=== PATIENT | female | born 1955 | race Caucasian/White ===

== ENCOUNTER → 2017-12-25 16:19 | Outpatient (CLI) | payer OTHER, SELFPAY ==
--- NOTE | 2017-12-25 16:32 | HPBI_ITS ---
MAMMOGRAPHY - BILATERAL SCREENING REASON FOR EXAM: Female, 62 years old. Routine annual screening examination. PERTINENT HISTORY: Non-contributory. TECHNIQUE: Digital bilateral breast milan (3D mammographic acquisition) in the CC and MLO projections. 2-D mediolateral oblique (MLO) and craniocaudad (CC) views of both breasts were obtained. CAD: Full Field Digital Mammography with Computer Added Detection was performed. COMPARISON: Comparison is made with prior outside examination dated December 25, 2015. FINDINGS: Breast Composition: There are scattered areas of fibroglandular density. There are no dominant masses or suspicious calcifications. No other significant abnormalities are identified. There has been no significant change since the prior study. HPBI/SCREENING MAMM (CAD), BILAT IMPRESSION: Stable bilateral screening mammogram. Yearly follow-up mammogram recommended. (A) ASSESSMENT CATEGORY: BIRADS Category 1: Negative. A letter regarding these results will be sent to the patient by the facility within 30 days. Approximately 10% of breast cancers are not detected by mammography. A normal mammogram should not delay biopsy of a clinically suspicious abnormality. [id number] Electronically Signed: Javier Pruitt MD at 9:01 EST Tel [phone], Service support ,
== END ==
PROVIDERS: Family Provider Family Medicine; PCP Family Medicine; Visit Provider Family Medicine
DX: Z12.31 Encounter for screening mammogram for malignant neoplasm of breast (principal)
CPT/HCPCS: 77063; 77067

== ENCOUNTER → 2019-01-03 15:42 | Outpatient (CLI) | payer OTHER, SELFPAY ==
--- NOTE | 2019-01-03 15:46 | BI_ITS ---
MAMMOGRAPHY - BILATERAL SCREENING REASON FOR EXAM: Female, 64 years old. Routine annual screening examination. PERTINENT HISTORY: Non-contributory. TECHNIQUE: Digital bilateral breast milan (3D mammographic acquisition) in the CC and MLO projections. 2-D mediolateral oblique (MLO) and craniocaudad (CC) views of both breasts were obtained. CAD: Full Field Digital Mammography with Computer Added Detection was performed. COMPARISON: Comparison is made with prior study dated December 25, 2017. FINDINGS: Breast Composition: There are scattered areas of fibroglandular density. There are no dominant masses or suspicious calcifications. No other significant abnormalities are identified. There has been no significant change since the prior study. BI/SCREENING MAMM (CAD), BILAT IMPRESSION: Stable bilateral screening mammogram. Yearly follow-up mammogram recommended. (A) ASSESSMENT CATEGORY: BIRADS Category 1: Negative. A letter regarding these results will be sent to the patient by the facility within 30 days. Approximately 10% of breast cancers are not detected by mammography. A normal mammogram should not delay biopsy of a clinically suspicious abnormality. [id number] Electronically Signed: Javier Pruitt MD at 8:42 EST , Service support ,
--- NOTE | 2019-01-03 15:49 | BD_ITS ---
STUDY: DUAL ENERGY X-RAY ABSORPTIOMETRY / DXA REASON FOR EXAM: Female, 64 years old. The patient is postmenopausal. Loss of height. TECHNIQUE: Bone Mineral Density (BMD) measurements of lumbar spine and bilateral hips were obtained. COMPARISON: None. FINDINGS: Lumbar Spine (L1-L4): g/cm2 (1.505) / T-score (2.5) / Z-score (4.1) Findings are suggestive of normal bone density with a low fracture risk. Left Femur Total: g/cm2 (1.079) / T-score (0.6) / Z-score (1.8) Left Femoral Neck: g/cm2 (1.0-2) / T-score (-0.1) / Z-score (1.4) Right Femur Total: g/cm2 (1.087) / T-score (0.6) / Z-score (1.9) Right Femoral Neck: g/cm2 (0.978) / T-score (-0.4) / Z-score (1.1) BD/Dexa Bone Density Study IMPRESSION: The patient is considered normal as outlined below according to World Evens Organization (WHO) criteria with a low fracture risk. Reference Information: The T-score is the number of standard deviations above or below the standard which is normal for young adults at their peak bone mineral density. The World Health Organization (WHO) interprets the T-scores as follows: Above -1 Normal bone density Between -1 and -2.5 Osteopenia Equal to / or below -2.5 Osteoporosis As a practical clinical guideline, osteopenia may be graded as follows: Mild -1 through -1.5 Moderate -1.6 through -2.0 Severe -2.1 through -2.4 The Z-score is the number of standard deviations above or below age-matched controls. A Z-score of less than -1.5 would be considered abnormal. References: 1. NIH Osteoporosis and Related Bone Diseases http://www.osteo.org 2. International Society for Clinical Densitometry http://www.iscd.org 3. National Osteoporosis Foundation http://www.nof.org Electronically Signed: Javier Pruitt MD at 10:27 EST , Service support ,
== END ==
PROVIDERS: Family Provider Family Medicine; PCP Family Medicine; Visit Provider Family Medicine
DX: Z12.31 Encounter for screening mammogram for malignant neoplasm of breast (principal); Z78.0 Asymptomatic menopausal state
CPT/HCPCS: 77063; 77067; 77080

== ENCOUNTER → 2019-04-30 | Outpatient (CLI) | payer OTHER, SELFPAY ==
--- NOTE | 2019-04-30 15:31 | RAD_ITS ---
STUDY: X-RAY - LEFT KNEE REASON FOR EXAM: Female, 64 years old. Left knee pain TECHNIQUE: 4 view(s) of the knee. COMPARISON: None. FINDINGS: Normal visualized distal femur. Normal visualized proximal tibia and fibula. Normal proximal tibiofibular articulation. There is mild degenerative arthrosis of the medial femorotibial compartment. There is mild degenerative arthrosis of the lateral femorotibial compartment. Normal patellofemoral articulation. The soft tissue structures are unremarkable. RAD/Knee 4 or More Views IMPRESSION: Mild degenerative changes of the medial and lateral knee compartments. Electronically Signed: Rashawn Khan MD at 16:08 EDT , Service support ,
== END | disposition home or self-care (01) ==
LOC: MTLAB 15:29 → MTRAD 15:30
PROVIDERS: Family Provider Family Medicine; PCP Family Medicine; Referring Provider Family Medicine; Visit Provider Family Medicine
DX: M17.12 Unilateral primary osteoarthritis, left knee (principal)
CPT/HCPCS: 73564

== ENCOUNTER → 2019-05-31 08:22 | Outpatient (CLI) | payer OTHER, SELFPAY ==
[2019-05-29 08:17] VITALS: BMI 32.3
[2019-05-31 10:22] LABS: T4 Free Direct 1.25 ng/dL (0.76-1.46); Thyroid Stim Hormone (TSH) 1.03 uIU/mL (0.358-3.74)
== END ==
PROVIDERS: Family Provider Family Medicine; PCP Family Medicine; Referring Provider Family Medicine; Visit Provider Family Medicine
DX: E03.9 Hypothyroidism, unspecified (principal)
CPT/HCPCS: 36415; 84439; 84443

== ENCOUNTER → 2019-08-08 15:26 | Outpatient (CLI) | payer OTHER, SELFPAY ==
[2019-05-29 08:17] VITALS: BMI 32.3
[2019-08-08 17:50] LABS: T4 Total, Thyroxin 14.6 ug/dL (4.8-13.9); Thyroid Stim Hormone (TSH) 0.02 uIU/mL (0.358-3.74)
== END ==
PROVIDERS: Family Provider Family Medicine; PCP Family Medicine; Referring Provider Family Medicine; Visit Provider Family Medicine
DX: E03.9 Hypothyroidism, unspecified (principal)
CPT/HCPCS: 36415; 84436; 84443

== ENCOUNTER → 2019-08-28 11:33 | Outpatient (CLI) | payer OTHER, SELFPAY ==
[2019-05-29 08:17] VITALS: BMI 32.3
[2019-08-28 14:46] LABS: T4 Free Direct 0.89 ng/dL (0.76-1.46)
== END ==
PROVIDERS: Family Medicine; Family Provider Family Medicine; PCP Family Medicine; Referring Provider Family Medicine; Visit Provider Family Medicine
DX: E03.9 Hypothyroidism, unspecified (principal)
CPT/HCPCS: 36415; 84439; 84443

== ENCOUNTER → 2019-09-19 10:32 | Outpatient (CLI) | payer OTHER, SELFPAY ==
[2019-05-29 08:17] VITALS: BMI 32.3
== END ==
PROVIDERS: Family Provider Family Medicine; PCP Family Medicine; Referring Provider Family Medicine; Visit Provider Family Medicine
DX: E03.9 Hypothyroidism, unspecified (principal)
CPT/HCPCS: 36415; 84443

== ENCOUNTER → 2019-11-01 15:02 | Outpatient (CLI) | payer OTHER, SELFPAY ==
[2019-05-29 08:17] VITALS: BMI 32.3
== END ==
PROVIDERS: Family Provider Family Medicine; PCP Family Medicine; Referring Provider Family Medicine; Visit Provider Family Medicine
DX: E03.9 Hypothyroidism, unspecified (principal)
CPT/HCPCS: 36415; 84443

== ENCOUNTER → 2019-12-13 10:27 | Outpatient (CLI) | payer OTHER, SELFPAY ==
[2019-05-29 08:17] VITALS: BMI 32.3
[2019-12-13 12:59] LABS: Anion Gap 5 (5-15); BUN 22 mg/dL (7-18); Calcium,Total 9.4 mg/dL (8.5-10.1); Chloride 108 mmol/L (98-107); Cholesterol 164 mg/dL (200); Creatinine, Serum 0.67 mg/dL (0.55-1.02); EST Glomerular Filtration Rate 94 mL/min (>60); Est Glom Filt Rate - Afr Amer 114 mL/min (>60); Glucose 73 mg/dL (74-106); High Density Lipoprotein 55 mg/dL; Potassium 3.9 mmol/L (3.5-5.1); Sodium Level 141 mmol/L (136-145); Thyroid Stim Hormone (TSH) 9.25 uIU/mL (0.358-3.74); Triglycerides 70 mg/dL; Very Low Density Lipoprotein 14 mg/dL (5-40)
[2019-12-13 17:06] LABS: T4 Free Direct 1.08 ng/dL (0.76-1.46)
== END ==
PROVIDERS: PCP Family Medicine; Referring Provider Family Medicine; Visit Provider Family Medicine
DX: E78.00 Pure hypercholesterolemia, unspecified (principal); E03.9 Hypothyroidism, unspecified; E66.9 Obesity, unspecified
CPT/HCPCS: 36415; 80048; 80061; 84439; 84443

== ENCOUNTER → 2020-05-04 08:36 | Outpatient (CLI) | payer OTHER, SELFPAY ==
[2019-05-29 08:17] VITALS: BMI 32.3
[2020-05-04 10:22] LABS: Anion Gap 2 (5-15); BUN 25 mg/dL (7-18); BUN/Creat Ratio 44.6 RATIO (10-20); Calcium,Total 8.8 mg/dL (8.5-10.1); Chloride 111 mmol/L (98-107); Creatinine, Serum 0.56 mg/dL (0.55-1.02); EST Glomerular Filtration Rate 114 mL/min (>60); Est Glom Filt Rate - Afr Amer 138 mL/min (>60); Glucose 85 mg/dL (74-106); Potassium 3.9 mmol/L (3.5-5.1); Sodium Level 143 mmol/L (136-145); Thyroid Stim Hormone (TSH) 5.63 uIU/mL (0.358-3.74)
== END ==
PROVIDERS: PCP Family Medicine; Visit Provider Family Medicine
DX: E03.9 Hypothyroidism, unspecified (principal); E78.00 Pure hypercholesterolemia, unspecified
CPT/HCPCS: 36415; 80048; 84443

== ENCOUNTER → 2020-08-04 08:15 | Outpatient (CLI) | payer OTHER, SELFPAY ==
[2019-05-29 08:17] VITALS: BMI 32.3
[2020-08-04 10:11] LABS: Cholesterol 174 mg/dL (200); High Density Lipoprotein 62 mg/dL; Thyroid Stim Hormone (TSH) 5.86 uIU/mL (0.358-3.74); Triglycerides 75 mg/dL; Very Low Density Lipoprotein 15 mg/dL (5-40)
== END ==
PROVIDERS: PCP Family Medicine; Referring Provider Family Medicine; Visit Provider Family Medicine
DX: E78.00 Pure hypercholesterolemia, unspecified (principal); E03.9 Hypothyroidism, unspecified
CPT/HCPCS: 36415; 80061; 84443

== ENCOUNTER → 2020-09-23 08:13 | Outpatient (CLI) | payer OTHER, SELFPAY ==
[2019-05-29 08:17] VITALS: BMI 32.3
[2020-09-23 10:41] LABS: T4 Free Direct 1.04 ng/dL (0.76-1.46); Thyroid Stim Hormone (TSH) 2.79 uIU/mL (0.358-3.74)
== END ==
PROVIDERS: PCP Family Medicine; Referring Provider Family Medicine; Visit Provider Family Medicine
DX: E03.9 Hypothyroidism, unspecified (principal)
CPT/HCPCS: 36415; 84439; 84443; 84481

== ENCOUNTER → 2021-01-15 16:19 | Outpatient (CLI) | payer OTHER, SELFPAY ==
[2019-05-29 08:17] VITALS: BMI 32.3
[2021-01-15 18:29] LABS: Free T3 1.7 pg/mL (2.18-3.98); T4 Free Direct 1.09 ng/dL (0.76-1.46); Thyroid Stim Hormone (TSH) 3.29 uIU/mL (0.358-3.74)
== END ==
PROVIDERS: PCP Family Medicine; Referring Provider Family Medicine; Visit Provider Family Medicine
DX: E03.9 Hypothyroidism, unspecified (principal)
CPT/HCPCS: 36415; 84439; 84443; 84481

== ENCOUNTER → 2021-07-28 08:36 | Outpatient (CLI) | payer OTHER, SELFPAY ==
[2021-07-28 10:53] LABS: ALB/GLOB Ratio 1.2 RATIO (0.9-2.4); AST(SGOT) 21 U/L (15-37); Alanine Aminotransfer ALT/SGPT 31 U/L (13-56); Albumin, Serum 3.6 g/dL (3.2-5.0); Alkaline Phosphatase 61 U/L (45-117); Anion Gap 2 (5-15); BUN 19 mg/dL (7-18); BUN/Creat Ratio 35.8 RATIO (10-20); Calcium,Total 8.5 mg/dL (8.5-10.1); Chloride 110 mmol/L (98-107); Cholesterol 173 mg/dL (200); Creatinine, Serum 0.53 mg/dL (0.55-1.02); EST Glomerular Filtration Rate 122 mL/min (>60); Est Glom Filt Rate - Afr Amer 147 mL/min (>60); Free T3 2.2 pg/mL (2.18-3.98); Glucose 92 mg/dL (74-106); High Density Lipoprotein 63 mg/dL; Protein, Total 6.6 g/dL (6.4-8.2); Sodium Level 142 mmol/L (136-145); T4 Free Direct 1.07 ng/dL (0.76-1.46); Thyroid Stim Hormone (TSH) 1.84 uIU/mL (0.358-3.74); Triglycerides 48 mg/dL; Very Low Density Lipoprotein 10 mg/dL (5-40)
== END ==
PROVIDERS: PCP Family Medicine; Referring Provider Family Medicine; Visit Provider Family Medicine
DX: E03.9 Hypothyroidism, unspecified (principal); E78.00 Pure hypercholesterolemia, unspecified
CPT/HCPCS: 36415; 80053; 80061; 84439; 84443; 84481

== ENCOUNTER 2021-12-23 08:57 | Outpatient (CLI) | payer OTHER, SELFPAY ==
[2021-12-23 10:28] LABS: Cholesterol 141 mg/dL (200); High Density Lipoprotein 53 mg/dL; T4 Free Direct 1.24 ng/dL (0.76-1.46); Thyroid Stim Hormone (TSH) 1.24 uIU/mL (0.358-3.74); Triglycerides 57 mg/dL; Very Low Density Lipoprotein 11 mg/dL (5-40)
== END 2021-12-23 23:59 | disposition home or self-care (01) ==
LOC: MFPLAB 09:03
PROVIDERS: PCP Family Medicine; Referring Provider Family Medicine; Visit Provider Family Medicine
DX: E03.9 Hypothyroidism, unspecified (principal); E78.00 Pure hypercholesterolemia, unspecified
CPT/HCPCS: 36415; 80061; 84439; 84443; 84481

== ENCOUNTER 2022-01-18 13:13 | Outpatient (CLI) | payer OTHER, SELFPAY ==
--- NOTE | 2022-01-18 13:15 | BI_ITS ---
MAMMOGRAPHY - BILATERAL SCREENING REASON FOR EXAM: Female, 67 years old. Routine annual screening examination. PERTINENT HISTORY: Non-contributory. TECHNIQUE: Digital bilateral breast cherry (3D mammographic acquisition) in the CC and MLO projections. 2-D mediolateral oblique (MLO) and craniocaudad (CC) views of both breasts were obtained. CAD: Full Field Digital Mammography with Computer Added Detection was performed. COMPARISON: Comparison is made with prior study dated 01/03/2019 and 12/25/2017. FINDINGS: Breast Composition: There are scattered areas of fibroglandular density. There are no dominant masses or suspicious calcifications. No other significant abnormalities are identified. There has been no significant change since the prior study. BI/SCRN MAMM (CAD)W/CHERRY BILAT IMPRESSION: Stable bilateral screening mammogram. Yearly follow-up mammogram recommended. (A) ASSESSMENT CATEGORY: BIRADS Category 1: Negative. A letter regarding these results will be sent to the patient by the facility within 30 days. Approximately 10% of breast cancers are not detected by mammography. A normal mammogram should not delay biopsy of a clinically suspicious abnormality. [id number] Electronically Signed: Javier Pruitt MD at 14:20 EST ,
--- NOTE | 2022-01-18 13:20 | BD_ITS ---
STUDY: DUAL ENERGY X-RAY ABSORPTIOMETRY / DXA REASON FOR EXAM: Female, 67 years old. [id number]. Patient is postmenopausal. TECHNIQUE: Bone Mineral Density (BMD) measurements of lumbar spine and bilateral hips were obtained. COMPARISON: Comparison is made with prior study dated 01/03/2019. FINDINGS: Lumbar Spine (L1-L4): g/cm2 (1.203) / T-score (1.4) / Z-score (3.5) Findings are suggestive of normal bone density with a low fracture risk. Left Femur Total: g/cm2 (0.990) / T-score (0.4) / Z-score (1.8) Left Femoral Neck: g/cm2 (0.872) / T-score (0.2) / Z-score (1.9) Right Femur Total: g/cm2 (0.944) / T-score (0.0) / Z-score (1.5) Right Femoral Neck: g/cm2 (0.743) / T-score (-1.0) / Z-score (0.8) The T-Scores on the most recent prior examination were: Lumbar Spine (L1-L4): There has been worsening of bone density since the previous examination. Left Femur Total: which represents a worsening of 2.1%. Right Femur Total: which represents a worsening of 7.4%. BD/Dexa Bone Density Study IMPRESSION: The patient is considered normal as outlined below according to World Evens Organization (WHO) criteria with a low fracture risk. There has been worsening of bone density since the previous examination. Reference Information: The T-score is the number of standard deviations above or below the standard which is normal for young adults at their peak bone mineral density. The World Health Organization (WHO) interprets the T-scores as follows: Above -1 Normal bone density Between -1 and -2.5 Osteopenia Equal to / or below -2.5 Osteoporosis As a practical clinical guideline, osteopenia may be graded as follows: Mild -1 through -1.5 Moderate -1.6 through -2.0 Severe -2.1 through -2.4 The Z-score is the number of standard deviations above or below age-matched controls. A Z-score of less than -1.5 would be considered abnormal. References: 1. NIH Osteoporosis and Related Bone Diseases www osteo.org 2. International Society for Clinical Densitometry www iscd.org 3. National Osteoporosis Foundation www nof.org Electronically Signed: Javier Pruitt MD at 12:42 EST ,
== END 2022-01-18 23:59 | disposition home or self-care (01) ==
LOC: OPBD 13:13
PROVIDERS: PCP Family Medicine; Visit Provider Family Medicine
DX: Z12.31 Encounter for screening mammogram for malignant neoplasm of breast (principal)
CPT/HCPCS: 77063; 77067; 77080

== ENCOUNTER 2022-01-20 07:00 | Outpatient (RCR) | payer OTHER, SELFPAY ==
--- NOTE | 2021-12-30 07:45 | HP.PTEVAL ---
Patient's Visit Information TIFFANY DUNLAP is a 66 year old F referred to Physical Therapy by Dr. Arnold New MD with a diagnosis of Left Knee Pes Anserine Bursitis. Date of Evaluation: 12/30/21 Physical Therapist: Carmenza Eason DPT - Visit Plan Frequency: 2x /Week Duration: 3 Weeks Plan: Focus on LE and core strength/stabilization- Modality of ice/heat only. HEP Given IE: quad set, SLR, bridge, 90/90 hamstring stretch - Subjective Patient reports that her left knee a couple of years ago just started hurting. She can deal with the pain during the day but at night its miserable. She tried everything but ended up in the recliner-didn't ever go away. She has had 5 cortisone injections in the knee- they take the edge off but the pain doesn't completely go away. Pain is located on medial portion of the knee and tightness radiates up the hamstring- does radiate to the mid vang. Describes it as sharp/shooting and knife like pain. Worst: 08/22 Agg: night time, twisting Eases: Cortisone injection. Best: 11/22. Watches her grandchildren and has a hard time getting up/down off the floor. She is not doing a normal exercise program but she is active throughout the day. She gets 6,0000 steps a day walking in the basement. X-rays- mild degeneration. No MRI at this time. Dr. Vincent gave her some exercises that she does at home but is not sure that they are working. Has not seen orthopedics. PMHx: varicose vein removal years ago Meds: Synthroid. - Objective Posture: FH, RS- can correct but does not maintain. Gait: slightly antalgic- decreased stance on the left LE with valgus at the left knee. HR/TR: able with UE A. SLS: 5 sec then LOB does have moderate hip drop. Stairs: asc/desc 8 recip with 1 HR- Descent lacks eccentric control. Sensation: WNL. Palpation: tender along medial joint line and pes anserine. ROM: 0-120 degrees with pain at end range flexion. Flex: HS: moderate, Gastroc: moderate. Strength: Core: fair minus, Hip: 4/5 throughout, Knee: 4/5 with discomfort with HS testing, Ankle: 5/5. Special Test: LLD: negative, Pelvic Alignment: WFL - Special Tests L/S Slump test left side: Negative L/S Left Straight Leg Raise: Negative L Hip Scour: Negative L Hip RONDA - Intraarticular Pathology: Negative L Hip FADDIR - Labrum: Negative L Hip Impingement Provocation - Labrum: Negative L Hip Trendelenberg - Glut Medius: Negative L Hip Juan - IT Band: Negative L Knee Eladio - Meniscus: Positive L Knee Valgus - MCL: Positive L Knee Varus - LCL: Negative - Balance/Special Test Scores Lower Extremity Functional Score: 65 - Goals Goal 1:: Patient will be I with HEP and progression Goal Time Frame: 4-6 Weeks Goal 2:: Patient will ambulate >300 feet with a normalized gait pattern Goal Time Frame: 4-6 Weeks Goal 3:: Patient will SLS for 15 sec without LOB or pain Goal Time Frame: 4-6 Weeks Goal 4:: Patient will report sleeping through the night for 1 week Goal Time Frame: 4-6 Weeks Goal 5:: Patient will subjectively report more than 75% improvement. Goal Time Frame: 4-6 Weeks - Rehabilitation Potential Physical Therapy Diagnosis: Patient presents with hypomobility- she has decreased pain free ROM, LE and core strength/stabilization, flex and muscular endurance leading to poor posture, abnormal gait and increased pain with ADL's. Rehabilitation Potential: Good - Anticipated Interventions Patient/Client Instruction: Educate patient on: Benefits of Fitness Program Therapeutic Exercise to Include: Strength training, Endurance training, Agility training, Body mechanics, Postural training, Flexibilty training, Gait and locomotor training, Neuromotor development, Dynamic Lumbar Stabilization, Scapular Strength/Stabilization For the Purpose of:: To improve muscle performance and motor function TENS: No Cryotherapy (ice pack, ice massage): Yes Thermo therapy (hot pack): Yes Ultrasound (thermal/non thermal): No Thank you for the opportunity to evaluate your patient. For Medicare and Medicare HMO plans, please review the plan of care and approve it. It will need to be FAXED BACK to us at [phone] for Medicare purposes. For Medicare only, by signing this I certify the plan of care. Please let me know if there are questions or concerns regarding this plan of care. Physician Signature: Date:
--- NOTE | 2022-01-20 08:17 | HP.PTDCSUM ---
It has been my pleasure to treat TIFFANY DUNLAP referred by Dr. Arnold New MD, with the diagnosis of Left Knee Pes Anserine Bursitis for a total of 7 visit(s). Discharge Date: Please see the following information for a summary of their discharge status. Subjective: Patient reports that she is doing exercises 1x a day and is very anglican about it. She reports that she slept through the night last night without pain. Pain is triggered by pivoting. % Improvement: 90 Objective/Function: Posture: FH, RS- can correct but does not maintain. Gait: no deviation noted. HR/TR: able with UE A. SLS: 15 sec. Stairs: asc/desc 8 recip with no HR. Sensation: WNL. Palpation: tender along medial joint line. ROM: 0-120 degrees. Flex: HS: moderate, Gastroc: moderate. Strength: Core: fair, Hip: 4+/5 throughout, Knee: 4+/5, Ankle: 5/5. Special Test: LLD: negative, Pelvic Alignment: WFL. - Special Tests. L/S Slump test left side: Negative. L/S Left Straight Leg Raise: Negative. L Hip Scour: Negative. L Hip RONDA - Intraarticular Pathology: Negative. L Hip FADDIR - Labrum: Negative. L Hip Impingement Provocation - Labrum: Negative. L Hip Trendelenberg - Glut Medius: Negative. L Hip Juan - IT Band: Negative. L Knee Eladio - Meniscus: Positive. L Knee Valgus - MCL: Positive. L Knee Varus - LCL: Negative Goal 1:: Patient will be I with HEP and progression Goal Progress: Goal Met Goal 2:: Patient will ambulate >300 feet with a normalized gait pattern Goal Progress: Goal Met Goal 3:: Patient will SLS for 15 sec without LOB or pain Goal Progress: Goal Met Goal 4:: Patient will report sleeping through the night for 1 week Goal Progress: Goal Met Goal 5:: Patient will subjectively report more than 75% improvement. Goal Progress: Goal Met Plan: 01/20: Discharge to I HEP. Focus on LE and core strength/stabilization- Modality of ice/heat only. HEP Given IE: quad set, SLR, bridge, 90/90 hamstring stretch If there are questions or concerns regarding this patient's physical therapy, please feel free to call me at [phone]. Thank you for the referral of this patient. Sincerely, Carmenza Eason, FABIANOT Balance/Gait/Functional tests - Balance/Special Test Scores Lower Extremity Functional Score: 78
--- NOTE | 2022-04-27 10:32 | HP.PTDCSUM_ITS ---
It has been my pleasure to treat TIFFANY DUNLAP referred by Dr. Arnold New MD, with the diagnosis of Left Knee Pes Anserine Bursitis for a total of 7 visit(s). Discharge Date: Please see the following information for a summary of their discharge status. Subjective: Patient reports that she is doing exercises 1x a day and is very yazidism about it. She reports that she slept through the night last night without pain. Pain is triggered by pivoting. % Improvement: 90 Objective/Function: Posture: FH, RS- can correct but does not maintain. Gait: no deviation noted. HR/TR: able with UE A. SLS: 15 sec. Stairs: asc/desc 8 recip with no HR. Sensation: WNL. Palpation: tender along medial joint line. ROM: 0-120 degrees. Flex: HS: moderate, Gastroc: moderate. Strength: Core: fair, Hip: 4+/5 throughout, Knee: 4+/5, Ankle: 5/5. Special Test: LLD: negative, Pelvic Alignment: WFL. - Special Tests. L/S Slump test left side: Negative. L/S Left Straight Leg Raise: Negative. L Hip Scour: Negative. L Hip RONDA - Intraarticular Pathology: Negative. L Hip FADDIR - Labrum: Negative. L Hip Impingement Provocation - Labrum: Negative. L Hip Trendelenberg - Glut Medius: Negative. L Hip Juan - IT Band: Negative. L Knee Eladio - Meniscus: Positive. L Knee Valgus - MCL: Positive. L Knee Varus - LCL: Negative Goal 1:: Patient will be I with HEP and progression Goal Progress: Goal Met Goal 2:: Patient will ambulate >300 feet with a normalized gait pattern Goal Progress: Goal Met Goal 3:: Patient will SLS for 15 sec without LOB or pain Goal Progress: Goal Met Goal 4:: Patient will report sleeping through the night for 1 week Goal Progress: Goal Met Goal 5:: Patient will subjectively report more than 75% improvement. Goal Progress: Goal Met Plan: 01/20: Discharge to I HEP. Focus on LE and core strength/stabilization- Modality of ice/heat only. HEP Given IE: quad set, SLR, bridge, 90/90 hamstring stretch If there are questions or concerns regarding this patient's physical therapy, please feel free to call me at [phone]. Thank you for the referral of this patient. Sincerely, Carmenza Eason, FABIANOT Balance/Gait/Functional tests - Balance/Special Test Scores Lower Extremity Functional Score: 78
== END 2022-01-20 19:00 | disposition home or self-care (01) ==
LOC: PT 07:00
PROVIDERS: PCP Family Medicine; Referring Provider Family Medicine; Visit Provider Family Medicine
DX: M70.52 Other bursitis of knee, left knee (principal); M25.562 Pain in left knee
CPT/HCPCS: 97110; 97161; 97164

== ENCOUNTER → 2022-06-16 | Outpatient (CLI) | payer OTHER, SELFPAY ==
[2022-06-16 15:43] LABS: Free T3 2.3 pg/mL (2.18-3.98); T4 Free Direct 1.22 ng/dL (0.76-1.46); Thyroid Stim Hormone (TSH) 0.87 uIU/mL (0.358-3.74)
== END | disposition home or self-care (01) ==
LOC: MFPLAB 12:02
PROVIDERS: PCP Family Medicine; Referring Provider Family Medicine; Visit Provider Family Medicine
DX: E03.9 Hypothyroidism, unspecified (principal)
CPT/HCPCS: 36415; 84439; 84443; 84481

== ENCOUNTER → 2022-08-05 | Outpatient (CLI) | payer OTHER, SELFPAY ==
[2022-08-05 14:55] LABS: Absolute Lymphocyte Count 0.92 X10^3/uL (0.83-4.51); Absolute Neutrophil Count 2.4 X10^3/uL (2.0-7.7); Basophil# 0.05 X10^3/uL; Basophil% 1.3 % (0-1); Eosinophil# 0.18 X10^3/uL; Eosinophils% 4.7 % (0-5); Hematocrit 38.9 % (37-47); Hemoglobin 12.5 g/dL (12.0-15.0); Lymphocyte # 0.92 X10^3/ul (0.83-4.51); Lymphocyte % 24.1 % (19-41); Mean Corp Hgb Conc 32.1 g/dL (32-36); Mean Corpuscular Hgb 29.1 pg (27.0-32.0); Mean Corpuscular Volume 90.5 fL (81-99); Mean Platelet Vol. 10.3 fl (6.2-12.0); Monocyte# 0.28 X10^3/uL; Monocyte% 7.3 % (0-10); NRBC Flagged by Analyzer 0 % (0-5); Neutrophil # 2.37 X10^3/uL (2.7-7.7); Neutrophil % 62.3 % (47-70); Platelet Count 195 K/mm3 (150-450); White Blood Count 3.8 K/mm3 (4.4-11.0)
[2022-08-05 15:20] LABS: ALB/GLOB Ratio 1.3 RATIO (0.9-2.4); AST(SGOT) 35 U/L (15-37); Alanine Aminotransfer ALT/SGPT 40 U/L (13-56); Albumin, Serum 3.8 g/dL (3.2-5.0); Alkaline Phosphatase 62 U/L (45-117); Anion Gap 7 (5-15); BUN 16 mg/dL (7-18); BUN/Creat Ratio 25.4 RATIO (10-20); Calcium,Total 8.9 mg/dL (8.5-10.1); Chloride 109 mmol/L (98-107); Cholesterol 173 mg/dL (200); Creatinine, Serum 0.63 mg/dL (0.55-1.02); EST Glomerular Filtration Rate 100 mL/min (>60); Est Glom Filt Rate - Afr Amer 121 mL/min (>60); Glucose 70 mg/dL (74-106); High Density Lipoprotein 75 mg/dL; Potassium 3.8 mmol/L (3.5-5.1); Protein, Total 6.8 g/dL (6.4-8.2); Sodium Level 142 mmol/L (136-145); Triglycerides 66 mg/dL; Very Low Density Lipoprotein 13 mg/dL (5-40)
== END | disposition home or self-care (01) ==
LOC: MFPLAB 11:27
PROVIDERS: PCP Family Medicine; Referring Provider Family Medicine; Visit Provider Family Medicine
DX: E78.00 Pure hypercholesterolemia, unspecified (principal); E03.9 Hypothyroidism, unspecified
CPT/HCPCS: 36415; 80053; 80061; 85025

== ENCOUNTER → 2022-12-20 | Outpatient (CLI) | payer OTHER, SELFPAY ==
[2022-12-20 19:32] LABS: Thyroid Stim Hormone (TSH) 2.96 uIU/mL (0.358-3.74)
== END | disposition home or self-care (01) ==
LOC: MFPLAB 08:25
PROVIDERS: PCP Family Medicine; Referring Provider Family Medicine; Visit Provider Family Medicine
DX: E03.9 Hypothyroidism, unspecified (principal)
CPT/HCPCS: 36415; 84443

== ENCOUNTER → 2023-01-02 | Outpatient (CLI) | payer OTHER, SELFPAY ==
[2023-01-02 15:59] LABS: ALB/GLOB Ratio 1.4 RATIO (0.9-2.4); AST(SGOT) 17 U/L (15-37); Alanine Aminotransfer ALT/SGPT 25 U/L (13-56); Albumin, Serum 4.1 g/dL (3.2-5.0); Alkaline Phosphatase 57 U/L (45-117); Anion Gap 8 (5-15); BUN 23 mg/dL (7-18); BUN/Creat Ratio 37.8 RATIO (10-20); Calcium,Total 9.4 mg/dL (8.5-10.1); Chloride 107 mmol/L (98-107); Creatinine, Serum 0.61 mg/dL (0.55-1.02); EST Glomerular Filtration Rate 104 mL/min (>60); Est Glom Filt Rate - Afr Amer 125 mL/min (>60); Glucose 97 mg/dL (74-106); Potassium 4.1 mmol/L (3.5-5.1); Protein, Total 7.1 g/dL (6.4-8.2); Sodium Level 141 mmol/L (136-145)
== END | disposition home or self-care (01) ==
LOC: MFPLAB 12:19
PROVIDERS: PCP Family Medicine; Visit Provider Family Medicine
DX: R00.2 Palpitations (principal)
CPT/HCPCS: 36415; 80053

== ENCOUNTER → 2023-01-19 | Outpatient (CLI) | payer OTHER, SELFPAY ==
--- NOTE | 2023-01-19 16:25 | BI_ITS ---
MAMMOGRAPHY - BILATERAL SCREENING REASON FOR EXAM: Female, 68 years old. Routine annual screening examination. PERTINENT HISTORY: Non-contributory. TECHNIQUE: Digital bilateral breast cherry (3D mammographic acquisition) in the CC and MLO projections. 2-D mediolateral oblique (MLO) and craniocaudad (CC) views of both breasts were obtained. CAD: Full Field Digital Mammography with Computer Added Detection was performed. COMPARISON: Comparison is made with prior study January 18, 2021 November 02, 2019. FINDINGS: Breast Composition: There are scattered areas of fibroglandular density. There are no dominant masses or suspicious calcifications. No other significant abnormalities are identified. There has been no significant change since the prior study. BI/SCRN MAMM (CAD)W/CHERRY BILAT IMPRESSION: Stable bilateral screening mammogram. Yearly follow-up mammogram recommended. (A) ASSESSMENT CATEGORY: BIRADS Category 1: Negative. A letter regarding these results will be sent to the patient by the facility within 30 days. Approximately 10% of breast cancers are not detected by mammography. A normal mammogram should not delay biopsy of a clinically suspicious abnormality. [id number] Electronically Signed: Javier Pruitt MD at 8:12 EST ,
== END | disposition home or self-care (01) ==
LOC: OPBI 16:20
PROVIDERS: PCP Family Medicine; Visit Provider Family Medicine
DX: Z12.31 Encounter for screening mammogram for malignant neoplasm of breast (principal)
CPT/HCPCS: 77063; 77067

== ENCOUNTER → 2023-03-24 | Outpatient (CLI) | payer OTHER, SELFPAY ==
--- NOTE | 2023-03-24 13:47 | ECHOD_ITS ---
Reason For Study: Afib/Flutter Procedure This was a 2D Doppler, Color Flow transthoracic echocardiogram. Exam performed in department. Left Ventricle Normal LV size. Left ventricular systolic function is normal. The estimated ejection fraction is 60 %. Stage 1 diastolic dysfunction. No regional wall motion abnormalities noted. Right Ventricle Normal RV size. Normal systolic function. Atria Normal left atrium. Normal right atrium. Mitral Valve There is mild mitral annular calcification. Tricuspid Valve Normal tricuspid valve. Mild (1+) tricuspid valve insufficiency. Pulmonary artery systolic pressure is 36 mmHg. Aortic Valve Trisinus/trileaflet aortic valve. Pulmonic Valve Normal pulmonic valve. Great Vessels Normal aortic root. The pulmonary artery is normal size. Normal inferior vena cava. Pericardium/Pleural No pericardial effusion. MMode/2D Measurements & Calculations LVIDd: 4.5 cm IVSd: 1.1 cm Ao root diam: 3.5 cm LVIDs: 2.4 cm LVPWd: 1.0 cm LA dimension: 3.7 cm RVDd: 3.5 cm FS: 45.5 % LAV(MOD-bp): 57.2 ml LA A4 area: 18.5 cm2 RA A4 area: 13.5 cm2 LAV(MOD-bp) Indexed: 30.2 ml/m2 LAV(MOD-sp2): 58.6 ml LAV(MOD-sp4): 50.7 ml Time Measurements MV dec time: 0.21 sec Doppler Measurements & Calculations MV E max vinicius: 95.4 cm/sec Lat Peak E' Vinicius: 9.2 cm/sec Med Peak E' Vinicius: 10.8 cm/sec MV A max vinicius: 105.1 cm/sec E/E' lat: 10.4 E/E' med: 8.8 MV E/A: 0.91 MV V2 max: 118.3 cm/sec MV P1/2t max vinicius: 112.2 cm/sec Ao V2 max: 137.0 cm/sec MV max P.6 mmHg MV P1/2t: 76.7 msec Ao max P.5 mmHg MV V2 mean: 69.2 cm/sec MV dec slope: 428.5 cm/sec2 Ao V2 mean: 92.0 cm/sec MV mean P.3 mmHg MVA(P1/2t): 2.9 cm2 Ao mean P.9 mmHg MV V2 VTI: 44.9 cm Ao V2 VTI: 35.3 cm AV (velocity ratio): 0.88 LV V1 max: 124.0 cm/sec PA V2 max: 91.3 cm/sec TR max vinicius: 276.0 cm/sec LV V1 max P.2 mmHg TR max P.5 mmHg LV V1 mean P.6 mmHg LV V1 mean: 90.1 cm/sec LV V1 VTI: 30.9 cm ECHO/Echo Complete Interpretation Summary Normal LV size. Left ventricular systolic function is normal. The estimated ejection fraction is 60 %. Stage 1 diastolic dysfunction. Pulmonary artery systolic pressure is 36 mmHg. Ordering Physician: Aly Storey Referring Physician: Rosamaria Fofana Performed By: Martin Sharp RCS
== END | disposition home or self-care (01) ==
PROVIDERS: PCP Family Medicine; Referring Provider Internal Medicine Cardiovascular Disease; Visit Provider Internal Medicine Cardiovascular Disease
DX: I48.0 Paroxysmal atrial fibrillation (principal)
CPT/HCPCS: 93306

== ENCOUNTER 2023-08-07 08:20 | Outpatient (CLI) | payer OTHER, SELFPAY | END 2023-08-07 23:59 | disposition home or self-care (01) | LOC: MFPLAB 08:22 | PROVIDERS: PCP Family Medicine; Visit Provider Family Medicine | DX: Z00.00 Encounter for general adult medical examination without abnormal findings (principal) ==

== ENCOUNTER → 2023-08-08 | Outpatient (CLI) | payer OTHER, SELFPAY ==
[2023-08-08 11:14] LABS: T4 Free Direct 1.25 ng/dL (0.76-1.46)
== END | disposition home or self-care (01) ==
LOC: MFPLAB 08:58
PROVIDERS: PCP Family Medicine; Visit Provider Family Medicine
DX: E03.9 Hypothyroidism, unspecified (principal)
CPT/HCPCS: 84439; 84443

== ENCOUNTER → 2023-08-18 | Outpatient (CLI) | payer OTHER, SELFPAY ==
[2023-08-18 10:59] LABS: ALB/GLOB Ratio 1.2 RATIO (0.9-2.4); AST(SGOT) 24 U/L (15-37); Alanine Aminotransfer ALT/SGPT 32 U/L (13-56); Albumin, Serum 3.8 g/dL (3.2-5.0); Alkaline Phosphatase 70 U/L (45-117); Anion Gap 5 (5-15); BUN 12 mg/dL (7-18); BUN/Creat Ratio 21.6 RATIO (10-20); Calcium,Total 9.1 mg/dL (8.5-10.1); Chloride 108 mmol/L (98-107); Cholesterol 196 mg/dL (200); Creatinine, Serum 0.56 mg/dL (0.55-1.02); EST Glomerular Filtration Rate 115 mL/min (>60); Est Glom Filt Rate - Afr Amer 139 mL/min (>60); Globulin 3.2 g/dL (2.2-4.2); Glucose 77 mg/dL (74-106); High Density Lipoprotein 73 mg/dL; Sodium Level 140 mmol/L (136-145); Triglycerides 66 mg/dL; Very Low Density Lipoprotein 13 mg/dL (5-40)
== END | disposition home or self-care (01) ==
LOC: MFPLAB 08:36
PROVIDERS: PCP Family Medicine; Visit Provider Family Medicine
DX: E78.00 Pure hypercholesterolemia, unspecified (principal)
CPT/HCPCS: 36415; 80053; 80061

== ENCOUNTER → 2024-02-05 | Outpatient (CLI) | payer OTHER, SELFPAY ==
--- NOTE | 2024-02-05 07:29 | BI_ITS ---
MAMMOGRAPHY - BILATERAL SCREENING REASON FOR EXAM: Female, 69 years old. Routine annual screening examination. PERTINENT HISTORY: Non-contributory. TECHNIQUE: Digital bilateral breast cherry (3D mammographic acquisition) in the CC and MLO projections. 2-D mediolateral oblique (MLO) and craniocaudad (CC) views of both breasts were obtained. CAD: Full Field Digital Mammography with Computer Added Detection was performed. COMPARISON: Comparison is made with prior study January 19, 2023 and January 18, 2022. FINDINGS: Breast Composition: There are scattered areas of fibroglandular density. There are no dominant masses or suspicious calcifications. Stable small benign-appearing bilateral axillary lymph nodes. No other significant abnormalities are identified. There has been no significant change since the prior study. BI/SCRN MAMM (CAD)W/CHERRY BILAT IMPRESSION: Stable bilateral screening mammogram. Yearly follow-up mammogram recommended. (A) ASSESSMENT CATEGORY: BIRADS Category 2: Benign. A letter regarding these results will be sent to the patient by the facility within 30 days. Approximately 10% of breast cancers are not detected by mammography. A normal mammogram should not delay biopsy of a clinically suspicious abnormality. [id number] Electronically Signed: Javier Pruitt MD at 8:41 EDT ,
== END | disposition home or self-care (01) ==
PROVIDERS: PCP Family Medicine; Referring Provider Family Medicine; Visit Provider Family Medicine
DX: Z12.31 Encounter for screening mammogram for malignant neoplasm of breast (principal)
CPT/HCPCS: 77063; 77067

== ENCOUNTER → 2024-04-18 | Outpatient (CLI) | payer OTHER, SELFPAY ==
[2024-04-18 09:11] LABS: Absolute Lymphocyte Count 1.19 X10^3/uL (0.83-4.51); Basophil# 0.06 X10^3/uL; Basophil% 1.6 % (0-1); Eosinophil# 0.18 X10^3/uL; Eosinophils% 4.7 % (0-5); Hematocrit 40.3 % (37-47); Hemoglobin 12.7 g/dL (12.0-15.0); Lymphocyte # 1.19 X10^3/ul (0.83-4.51); Lymphocyte % 31.1 % (19-41); Mean Corp Hgb Conc 31.5 g/dL (32-36); Mean Corpuscular Hgb 27.7 pg (27.0-32.0); Mean Corpuscular Volume 87.8 fL (81-99); Monocyte# 0.38 X10^3/uL; Monocyte% 9.9 % (0-10); NRBC Flagged by Analyzer 0 % (0-5); Neutrophil # 2.02 X10^3/uL (2.7-7.7); Neutrophil % 52.7 % (47-70); Platelet Count 225 K/mm3 (150-450); RBC Distribution Width CV 13.9 % (11.6-14.6); RBC Distribution Width SD 44.8 fl (35.1-43.9); Red Blood Count 4.59 M/mm3 (4.2-5.4); White Blood Count 3.8 K/mm3 (4.4-11.0)
[2024-04-18 09:50] LABS: Anion Gap 5 (5-15); BUN 19 mg/dL (7-18); BUN/Creat Ratio 32.9 RATIO (10-20); Calcium,Total 9.4 mg/dL (8.5-10.1); Chloride 108 mmol/L (98-107); Creatinine, Serum 0.58 mg/dL (0.55-1.02); EST Glomerular Filtration Rate 110 mL/min (>60); Est Glom Filt Rate - Afr Amer 133 mL/min (>60); Glucose 84 mg/dL (74-106); Magnesium 2.5 mg/dL (1.6-2.6); Potassium 3.9 mmol/L (3.5-5.1); Sodium Level 140 mmol/L (136-145); T4 Total, Thyroxin 12.6 ug/dL (4.8-13.9); Thyroid Stim Hormone (TSH) 1.04 uIU/mL (0.358-3.74)
== END | disposition home or self-care (01) ==
LOC: LAB 07:27
PROVIDERS: PCP Family Medicine; Referring Provider Physician Assistant Medical; Visit Provider Physician Assistant Medical
DX: R03.0 Elevated blood-pressure reading, without diagnosis of hypertension (principal); I48.0 Paroxysmal atrial fibrillation; E03.9 Hypothyroidism, unspecified
CPT/HCPCS: 36415; 80048; 83735; 84436; 84443; 85025

== ENCOUNTER → 2024-06-21 | Outpatient (CLI) | payer OTHER, SELFPAY ==
--- NOTE | 2024-06-21 10:53 | STRESSREP ---
Stress Test Report Exercise myocardial perfusion stress test. 69-year-old lady with a history of paroxysmal atrial fibrillation Stress protocol: Resting EKG demonstrates normal sinus rhythm with a rate of 55 bpm resting blood pressure is 170/80 mmHg. The patient exercised according to the regular Russel protocol for a total duration of 5 minutes attaining a maximum heart rate of 141 bpm which was 94% of maximum predicted heart rate; the maximum workload was 7 metabolic equivalents. At rest there were no ST or T wave changes noted to suggest ischemia and at peak exercise upsloping ST changes only were noted which did not meet the criteria for ischemia. No clinical angina was noted the test was terminated due to the target heart rate being achieved/fatigue. The peak blood pressure was 190/94 mmHg. Rate-pressure product was 26,000. Myocardial perfusion protocol. 10.8 mCi of technetium 99m sestamibi was injected at rest. The patient exercised according to regular Russel protocol for total duration of 5-minute and at peak exercise 33 mCi of technetium 99m sestamibi was injected stress images were obtained stress and rest images were reconstructed in comparing the short axis vertical long and horizontal long axis. Gated images were also obtained. Perfusion SPECT analysis: Review of the stress images demonstrate normal uptake of tracer noted in all areas of the myocardium. The resting images similarly demonstrate normal uptake of tracer noted in all areas of the myocardium. No areas of reversibility are noted to suggest ischemia no previous infarct was noted. Gated SPECT analysis: The gated ejection fraction is 75%. Conclusion: Normal exercise myocardial perfusion stress test at a moderate work Preserved ejection fraction.
== END | disposition home or self-care (01) ==
LOC: CVS 06:55
PROVIDERS: PCP Family Medicine; Referring Provider Physician Assistant Medical; Visit Provider Physician Assistant Medical
DX: I48.0 Paroxysmal atrial fibrillation (principal); R94.31 Abnormal electrocardiogram [ECG] [EKG]; Z51.81 Encounter for therapeutic drug level monitoring; Z79.899 Other long term (current) drug therapy
CPT/HCPCS: 78452; 93017; A9500; A4216; J2785

== ENCOUNTER → 2025-01-29 | Outpatient (CLI) | payer MEDICARE, SELFPAY ==
[2025-01-29 11:56] LABS: ALB/GLOB Ratio 1.8 RATIO (0.9-2.4); AST(SGOT) 22 U/L (<=31); Alanine Aminotransfer ALT/SGPT 17 U/L (<=34); Albumin, Serum 4.2 g/dL (3.4-4.8); Alkaline Phosphatase 54 U/L (35-104); Anion Gap 10 (5-15); BUN 19 mg/dL (4-19); BUN/Creat Ratio 30.8 RATIO (10-20); Calcium,Total 9.4 mg/dL (7.6-11.0); Carbon Dioxide 25.9 mmol/L (21.0-32.0); Chloride 103 mmol/L (98-108); Cholesterol 170 mg/dL (<=200); Creatinine, Serum 0.62 mg/dL (0.70-1.20); EST Glomerular Filtration Rate 94 (>60); Globulin 2.3 g/dL (2.2-4.2); Glucose 88 mg/dL (70-99); High Density Lipoprotein 61 mg/dL; Low Density Lipoprotein Calc. 94 mg/dL; Protein, Total 6.5 g/dL (5.9-8.4); Sodium Level 139 mmol/L (133-145); Thyroid Stim Hormone (TSH) 0.594 uIU/mL (0.300-4.200); Total Bilirubin 0.46 mg/dL (0.00-1.30); Triglycerides 75 mg/dL; Very Low Density Lipoprotein 15 mg/dL (5-40); cholesterol:hdl ratio screen 2.79
== END | disposition home or self-care (01) ==
LOC: MFPLAB 08:03
PROVIDERS: PCP Family Medicine; Referring Provider Family Medicine; Visit Provider Family Medicine
DX: Z00.00 Encounter for general adult medical examination without abnormal findings (principal)
CPT/HCPCS: 36415; 80053; 80061; 84443

== ENCOUNTER → 2025-02-12 | Outpatient (CLI) | payer MEDICARE, SELFPAY ==
--- NOTE | 2025-02-12 07:10 | BI_ITS ---
EXAM: SCRN MAMM (CAD)W/CHERRY BILAT 02/12/2025 CLINICAL HISTORY: F, Age 70 y/o , SCREENING TECHNIQUE: Bilateral screening digital breast tomosynthesis with 2D and 3D images. Computer aided detection. COMPARISON: Prior exam(s) dated 02/05/2024, 01/19/2023. FINDINGS: TISSUE DENSITY: The breast tissue is composed of scattered area of fibroglandular density. Bilateral Breast Mammographic Findings: No significant masses, calcifications or other abnormalities are identified. BI/SCRN MAMM (CAD)W/CHERRY BILAT IMPRESSION: Right Breast: BIRADS 1 NEGATIVE. Left Breast: BIRADS 1 NEGATIVE. OVERALL FINAL ASSESSMENT: BIRADS 1 NEGATIVE. RECOMMENDATION: Routine annual follow-up in 1 Year A letter with findings and recommendations will be mailed to the patient. Reading Location: [facility]
== END | disposition home or self-care (01) ==
LOC: OPBI 07:08
PROVIDERS: PCP Family Medicine; Referring Provider Family Medicine; Visit Provider Family Medicine
DX: Z12.31 Encounter for screening mammogram for malignant neoplasm of breast (principal)
CPT/HCPCS: 77063; 77067

== ENCOUNTER → 2025-07-18 | Outpatient (CLI) | payer MEDICARE, SELFPAY ==
--- OUTSIDE RECORDS SUMMARY | 2025-07-18 09:02 | XMS RPT_ITS | CCD ---
Author Organization [facility] Care Team Providers Care Nanosystems Engineer Name Role Phone Fareed Kimbrough MD Primary Care Provider Fareed Kimbrough MD Referring Provider [phone] Arelis Robles Attending Provider [phone] Fareed Kimbrough MD Attending Provider [phone] Fareed Kimbrough MD Primary Care Provider [phone] Fareed Kimbrough MD Referring Provider [phone] Corina APPAREL MERCHANDISER-CHector Attending Provider Luis E, Chalon Primary Care Unavailable RobotRoxy day Attending Unavailable Luis E, Chalon Referring Unavailable Luis E, Chalon Referring Unavailable Luis E, Chalon Primary Care Unavailable Luis E, Chalon Attending Unavailable Luis E, Chalon Primary Care Unavailable Luis E, Chalon Attending Unavailable Luis E, Chalon Referring Unavailable Luis E, Chalon Primary Care Unavailable Roof Hector PATINO Attending Unavailable Luis E, Chalon Referring Unavailable Luis E, Chalon Referring Unavailable Luis E, Chalon Primary Care Unavailable Arelis Robles Attending Unavail able Allergies Allergy Classification Reported Allergen(s) Allergy Type Date of Onset Reaction(s) Facility (5 sources) cantaloupe allergenic extract Drug Allergy 03-08-2023 Unknown [facility] (6 sources) Fish derivative; Translations: [fish derived] Allergy to substance 03-08-2023 Anaphylaxis [facility] Comment on above: white fish (5 sources) watermelon preparation Drug Allergy 03-08-2023 Unknown [facility] (1 source) cantaloupe allergenic extract Drug Allergy 06-23-2025 [facility] Repository (1 source) watermelon allergenic extract Drug Allergy 06-23-2025 [facility] Repository Medications Current Medications Medication Drug Class(es) Dates Sig (Normalized) Sig (Original) cholecalciferol 0.025 mg oral tablet (5 sources) Vitamin D Start: 02-16-2023 take 1 tablet by mouth once daily Cholecalciferol (Vitamin D3) 25 mcg (1,000 unit) tablet Active 25 ug PO DAILY February 16, 2023 12:00am hydroCHLOROthiazide 12.5 mg / lisinopril 10 mg oral tablet (4 sources) Thiazide Diuretic, Angiotensin Converting Enzyme Inhibitor Start: 01-15-2025 End: 03-31-2025 Lisinopril-Hydrochl orothiazide 10-12.5 mg tablet Active 1 {tbl} PO daily March 31, 2025 10:37am levothyroxine sodium 0.125 mg oral tablet (20 sources) l-Thyroxine Start: 03-08-2023 take 1 tablet by mouth three times weekly Levothyroxine (Synthroid) 125 mcg tablet Active 125 ug PO MOWEMarch 08, 2023 11:27am 3 times per week Start: 02-16-2023 take 1 tablet by deven once daily Levothyroxine (Synthroid) 112 mcg tablet Active 112 ug PO DAILY February 16, 2023 12:00am 4 times per week Start: 02-16-2023 End: 03-08-2023 take 1 tablet by mouth once daily Levothyroxine (Synthroid) 125 mcg tablet Discontinued 125 ug PO DAILY February 16, 2023 12:00am March 08, 2023 11:28am 3 times per week Start: 05-29-2019 End: 02-16-2023 take 1 tablet by mouth once daily Levothyroxine (Synthroid) 25 mcg tablet Discontinued 25 ug PO DAILY May 29, 2019 12:00am February 16, 2023 1:40pm Multivitamin preparation (2 sources) Start: 02-16-2023 take 1 tablet by mouth once daily Multivitamin Active 1 TABLET PO DAILY February 16, 2023 12:00am Multivitamin tablet (3 sources) Start: 02-16-2023 Multivitamin t ablet Active 1 {tbl} PO DAILY February 16, 2023 12:00am psyllium 400 mg oral capsule (6 sources) Start: 06-23-2025 Psyllium Husk (Daily Fiber) 0.4 gram capsule Active 0.4 g PO .every other day June 23, 2025 10:08am Start: 02-16-2023 End: 06-23-2025 Psyllium Husk (Daily Fiber) 0.4 gram capsule Discontinued 0.4 g PO DAILY February 16, 2023 12:00am June 23, 2025 10:09am Completed/Discontinued Medications Medication Drug Class(es) Dates Sig (Normalized) Sig (Original) apixaban 5 mg oral tablet (8 sources) Factor Xa Inhibitor Start: 04-17-2024 End: 03-31-2025 Apixaban (Eliquis) 5 mg tablet Discontinued 5 mg PO .COMPLEX 180 3 March 31, 2025 8:16am March 31, 2025 12:03pm 5 mg orally Fax to [facility]; azithromycin 250 mg oral tablet (8 sources) Macrolide Antimicrobial Start: 05-29-2019 End: 02-16-2023 Azithromycin 250 mg tablet Discontinued 250 mg PO daily 6 0 May 29, 2019 12:00am February 16, 2023 1:39pm 2 tablets today, then 1 tablet daily on days 2 through 5 magnesium oxide 400 mg oral tablet (5 sources) Start: 03-08-2023 End: 09-26-2023 take 1 tablet by mouth once daily Magnesium Oxide 400 mg (241.3 mg magnesium) tablet Discontinued 400 mg PO DAILY March 08, 2023 12:00am September 26, 2023 4:36pm Problems Active Problems Problem Classification Problem Date Documented Da te Episodic/Chronic Cardiac dysrhythmias (9 sources) Paroxysmal atrial fibrillation; Translations: [Paroxysmal atrial fibrillation] Onset: 06-23-2025 02-16-2023 Chronic Chronic obstructive pulmonary disease and bronchiectasis (8 sources) Bronchitis; Translations: [Bronchitis, not specified as acute or chronic] 05-29-2019 Episodic Other aftercare (3 sources) Long-term current use of drug therapy; Translations: [Encounter for therapeutic drug level monitoring] 06-12-2024 Episodic Other circulatory disease (4 sources) Elevated blood pressure; Translations: [Elevated blood-pressure reading, without diagnosis of hypertension] 09-26-2023 Episodic Thyroid disorders (6 sources) Hypothyroidism; Translations: [Hypothyroidism, unspecified] 02-16-2023 Chronic Past or Other Problems Problem Classification Problem Date Documented Date Episodic/Chronic Other screening for suspected conditions (not mental disorders or infectious disease) (6 sources) Electrocardiogram abnormal; Translations: [Abnormal electrocardiogram [ECG] [EKG]] Onset: 02-18-2025 06-12-2024 Episodic Unclassified (8 sources) history of vein removal 06-02-2022 Results Test Name Value Interpretation Reference Range Facility Cardiology Visit Reporton Cardiology Visit Report [facility] [address] [place] [address] OFFICE VISIT Date of Service: 06/23/25 MR#: [id number] Acct: [id number] Name: TIFFANY KAY Rep #: [id number] : 1955 Provider: ANA mason Age/Sex: 70/F Location[place] [facility] Status: Signed Intake Vital Signs 02/12/25 08:31 06/23/25 10:01 Height 5 ft 8 in 5 ft 8 in Weight: 180 lb 176 lb BMI 27.3 26.7 BP 136/71 H 110/65 Blood Pressure Location Rt brachial Lt brachial Position Sitting Sitting Respiration 17 18 Pulse 54 L 68 Pulse Source Monitor Monitor Temp 97.1 F L Pulse Oximetry (%) 99 Oxygen Delivery Method room air Intake Visit Reasons: Afib Fri, Sat and Sun Project Facilitator Required: No Accompanied by: Self Is patient in pain?: No Allergies cantaloupe Allergy (Unknown, Verified 06/23/25 10:06) Unknown watermelon Allergy (Unknown, Verified 06/23/25 10:06) Unknown fish derived Allergy (Verified 06/23/25 10:06) Anaphylaxis Medications ???Medication ???Instructions ???Recorded ???Confirmed ???Type cholecalciferol (vitamin D3) 25 25 mcg PO DAILY 02/16/23 06/23/25 History mcg (1,000 unit) tablet levothyroxine 112 mcg tablet 112 mcg PO DAILY 02/16/23 06/23/25 History (Synthroid) multivitamin 1 tab PO DAILY 02/16/23 06/23/25 H istory levothyroxine 125 mcg tablet 125 mcg PO MOWEFR 03/08/23 5 History (Synthroid) apixaban 5 mg tablet (Eliquis) 5 mg PO BID #180 tabs 03/31/2510/07 Rx lisinopril 10 1 tab PO QDAY #90 tabs 03/31/25 Rx mg-hydrochlorothiazide 12.5 mg tablet psyllium husk 0.4 gram capsule 0.4 g PO .every other day 06/23/25 06/23/25 History (Daily Fiber) Ejection fraction %: 75 Have you fallen in the past year?: Yes (slid down basement steps) [facility] Medical History COVID-19 ( 2021) Hypothyroidism Paroxysmal atrial fibrillation Arthritis Knee pain Thyroid disease Surgical History History of History of tubal ligation History of vein stripping History of hernia repair Family History Mother Myocardial infarction Social History Smoking Status: Never smoker alcohol intake: never substance use type: does not use caffeine: Yes Type: coffee Number of servings: 4 ROS Const Const: Negative for fatigue or weakness Eyes Eyes: Negative for change in vision ENT ENT: Positive for dizziness; Negative for balance problems Cardio Chest Pain: No Character: other (heaviness-left chest) Location: left chest Palpitations: Yes (fluttering) Edema: None Muscle aches with walking: None Resp Respiratory: Positive for SOB with activity and SOB at rest; Negative for SOB orthopnea SOB lying down GI GI: Negative nausea or heartburn : Negative for hematuria or frequent nighttime urination/ nocturia Musc Musc: Negative for balance problems Skin Skin: Negative non-healing lesions or rash Neuro Neuro: Positive for dizziness, lightheadedness and near syncope; Negative for syncope or weakness Endo Endo: Negative for fatigue Allergy Allergy/Immunology: Negative for rash Cardiology Exam Const Appearance: cooperative, healthy appearing, comfortable and no acute distress Nutritional Appearance: well nourished and overweight Orientation: alert, awake and oriented x3 Head Head: normal to inspection Ears: hearing grossly normal bilaterally Nose: external nose normal Face and Sinus: face symmetric Mouth: moist mucous membranes Eyes General: appearance normal, both eyes and all related structures Eyelids: eyelids normal EOM: EOM intact bilaterally Neck Neck: normal visual inspection and no JVD Carotids: normal carotid upstroke Chest Chest inspection: normal inspection of the chest, symmetric chest movement and normal respiratory effort; Negative cough Auscultation: Bilateral: Clear to Auscultation Cardio Rate: regular rate Rhythm: regular rhythm Heart sounds: S1 normal and S2 normal; Negative rub, gallop or murmur GI GI: normal to inspection Neuro General: patient alert, patient awake, patient oriented x3 and CN's II-XI intact bilaterally Skin Skin: no rashes or lesions noted Extremities Pulses: Normal: Right Posterior Tibial Pulse, Left Posterior Tibial Pulse, Right Radial Pulse and Left Radial Pulse Lower Extremity Edema: None: Bilateral Psych Psychological: normal affect Supplemental Info Supplemental Information Echocardiogram 03/24/2023: Interpretation Summary Normal LV size. Left ventricular systolic function is normal. The estimated ejection (more content not included)... Normal [facility] Breast imaging reportOrdered By: Coleen Perry on 02-12-2025 Study report [facility] Imaging Services [address] [place] [address] SCRN MAMM (CAD)W/CHERRY BILAT MR#: [id number] Acct: [id number] Name: TIFFANY KAY Rep #: [id number] : 1955 F 70 From: Radhika Perry MD PCP: Dr. Fareed Kimbrough MD Status: REG CL I Study:SCRN MAMM (CAD)W/CHERRY BILAT Date of Exa m: 02/12/25 Exam# [id number] Ordering Dr: Angle Kimbrough MD EXAM: SCRN MAMM (CAD)W/CHERRY BILAT 02/12/2025 CLINICAL HISTORY: F, Age 70 y/o , SCREENING TECHNIQUE: Bilateral screening digital breast tomosynthesis with 2D and 3D images. Computeraided detection. COMPARISON: Prior exam(s) dated 02/05/2024, 01/19/2023. FINDINGS: TISSUE DENSITY: The breast tissue is composed of scattered area of fibroglandular density. Bilateral Breast Mammographic Findings: No significant masses, calcifications or other abnormalities are identified. BI/SCRN MAMM (CAD)W/CHERRY BILAT IMPRESSION: Right Breast: BIRADS 1 NEGATIVE. Left Breast: BIRADS 1 NEGATIVE. OVERALL FINAL ASSESSMENT: BIRADS 1 NEGATIVE. RECOMMENDATION: Routine annual follow-up in 1 Year A letter with findings and recommendations will be mailed to the patient. Reading Location: [facility] CC: Dr. Fareed Kimbrough MD ~ Packaging Engineer: Signed [facility] SCRN MAMM (CAD)W/CHERRY BILATo n 02-12-2025 SCRN MAMM (CAD)W/CHERRY BILAT [facility] Imaging Services [address] [place] [address] [id number] SCRN MAMM (CAD)W/CHERRY BILAT MR#: [id number] Acct: [id number] Name: TIFFANY KAY Rep #: [id number] : 1955 F 70 From: Coleen Perry MD PCP: Dr. Fareed Kimbrough MD Status: REG CLI Study: SCRN MAMM (CAD)W/CHERRY BILAT Date of Exam: 01/07 Exam# [id number] Ordering Dr: Fareed Kimbrough MD EXAM: SCRN MAMM (CAD)W/CHERRY BILAT 02/12/2025 CLINICAL HISTORY: F, Age 70 y/o , SCREENING TECHNIQUE: Bilateral screening digital breast tomosynthesis with 2D and 3D images. Computer aided detection. COMPARISON: Prior exam(s) dated 02/05/2024, 01/19/2023. FINDINGS: TISSUE DENSITY: The breast tissue is composed of scattered area of fibroglandular density. Bilateral Breast Mammographic Findings: No significant masses, calcifications or other abnormalities are identified. BI/SCRN MAMM (CAD)W/CHERRY BILAT IMPRESSION: Right Breast: BIRADS 1 NEGATIVE. Left Breast: BIRADS 1 NEGATIVE. OVERALL FINAL ASSESSMENT: BIRADS 1 NEGATIVE. RECOMMENDATION: Routine annual follow-up in 1 Year A letter with findings and recommendations will be mailed to the patient. Reading Location: [id number] CC: Dr. Fareed Kimbrough MD Packaging Engineer: Signed Normal [facility] Anion gap in Serum or Plasma Ordered By: Fareed Kimbrough on 01-29-2025 Anion gap [Moles/Vol] 10 mmol/L 5-15 [facility] BUN/creatinine ratioOrdered By: Fareed Kimbrough on 01-29-2025 Urea nitrogen/Creatinine [Mass ratio] 30.8 mg/mg High 10-20 [facility] Bilirubin, totalOrdered By: Fareed Kimbrough on 01-29-2025 Bilirubin [Mass/Vol] 0.46 mg/dL 0.00-1.30 [facility] Calculated very low density lipoprotein (VLDL) cholesterol measurementOrdered By: Fareed Kimbrough on 01-29-2025 VLDL Cholesterol 15 mg/dL 5-40 [facility] Carbon dioxide, total [Moles /volume] in Central venous bloodOrdered By: Fareed Kimbrough on 01-29-2025 CO2 [Moles/Vol] 25.9 mmol/L 21.0-32.0 [facility] Chloride assayOrdered By: Mirta Kimbrough on 01-29-2025 Chloride [Moles/Vol] 103 mmol/L 98-108 [facility] Comprehensive Metabolic Prof ilon 01-29-2025 Albumin [Mass/Vol] 4.2 g/dL Normal 3.4-4.8 [facility] Comment on above: Order Comment: Order Date: 01/28/25 Order Info: [id number] - CMP Order Info: [id number] - LIPID Order Info: [id number] - TSH Performed By: #### L 500.4100, L501.9520, L500.4050 #### [facility] [address], [address] Albumin/Globulin [Mass ratio] 1.8 {ratio} Normal 0.9-2.4 [facility] Comment on above: Order Comment: Order Date: 01/28/25 Order Info: [id number] - CMP Order Info: [id number] - LIPID Order Info: [id number] - TSH Performed By: #### L 500.4100, L501.9520, L500.4050 #### [facility] [address] [place], [address] ALK PHOS 54 U/L Normal 35-104 [facility] Comment on above: Order Comment: Order Date: 01/28/25 Order Info: 785- - CMP Order Info: [id number] - LIPID Order Info: [id number] - TSH Performed By: #### L 500.4100, L501.9520, L500.4050 #### [facility] [address] [place], [address] ALT [Catalytic activity/Vol] 17 U/L Normal <=34 [facility] Comment on above: Order Comment: Order Date: 01/28/25 Order Info: [id number] - CMP Order Info: - LIPID Order Info: [id number] - TSH Performed By: #### L 500.4100, L501.9520, L500.4050 #### [facility] [address] [place], [address] AST [Catalytic activity/Vol] 22 U/L Normal <=31 [facility] Comment on above: Order Comment: Order Date: 01/28/25 Order Info: [id number] - CMP Order Info: - LIPID Order Info: [id number] - TSH Performed By: #### L 500.4100, L501.9520, L500.4050 #### [facility] [address] [place], [address] Bilirubin [Mass/Vol] 0.46 mg/dL Normal 0.00-1.30 [facility] Comment on above: Order Comment: Order Date: 01/28/25 Order Info: [id number] - CMP Order Info: [id number] - LIPID Order Info: [id number] - TSH Performed By: #### L 500.4100, L501.9520, L500.4050 #### [facility] [address] [place], [address] BUN/CRE 30.8 RATIO High 10-20 [facility] Comment on above: Order Comment: Order Date: 01/28/25 Order Info: 785- - CMP Order Info: [id number] - LIPID Order Info: [id number] - TSH Performed By: #### L 500.4100, L501.9520, L500.4050 #### [facility] [address] [place], [address] Calcium [Mass/Vol] 9.4 mg/dL Normal 7.6-11.0 [facility] Comment on above: Order Comment: Order Date: 01/28/25 Order Info: [id number] - CMP Order Info: - LIPID Order Info: [id number] - TSH Performed By: #### L 500.4100, L501.9520, L500.4050 #### [facility] [address] [place], [address] Chloride [Moles/Vol] 103 mmol/L Normal 98-108 [facility] Comment on above: Order Comment: Order Date: 01/28/25 Order Info: [id number] - CMP Order Info: - LIPID Order Info: [id number] - TSH Performed By: #### L 500.4100, L501.9520, L500.4050 #### [facility] [address] [place], [address] CO2 [Moles/Vol] 25.9 mmol/L Normal 21.0-32.0 [facility] Comment on above: Order Comment: Order Date: 01/28/25 Order Info: [id number] - CMP Order Info: - LIPID Order Info: [id number] - TSH Performed By: #### L 500.4100, L501.9520, L500.4050 #### [facility] [address] [place], [address] Creatinine [Mass/Vol] 0.62 mg/dL Low 0.70-1.20 [facility] Comment on above: Order Comment: Order Date: 01/28/25 Order Info: [id number] - CMP Order Info: - LIPID Order Info: [id number] - TSH Performed By: #### L 500.4100, L501.9520, L500.4050 #### [facility] [address] [place], [address] GAP 10 Normal 5-15 [facility] Comment on above: Order Comment: Order Date: 01/28/25 Order Info: [id number] - CMP Order Info: - LIPID Order Info: [id number] - TSH Performed By: #### L 500.4100, L501.9520, L500.4050 #### [facility] [address] [place], [address] GFR/1.73 sq M.predicted among non-blacks MDRD (S/P/Bld) [Vol rate/Area] 94 mL/min/{1.73_m2} Normal >60 [facility] Comment on above: Order Comment: Order Date: 01/28/25 Order Info: [id number] - CMP Order Info: - LIPID Order Info: [id number] - TSH Result Comment: mL/m in/1.73m2 CKD-EPI Creatinine Equation (2020) Performed By: #### L 500.4100, L501.9520, L500.4050 #### [facility] [address] [place], [address] Globulin (S) [Mass/Vol] 2.3 g/dL Normal 2.2-4.2 [facility] Comment on above: Order Comment: Order Date: 01/28/25 Order Info: 785-11 - CMP Order Info: - LIPID Order Info: [id number] - TSH Performed By: #### L 500.4100, L501.9520, L500.4050 #### [facility] [address] [place], [address] Glucose [Mass/Vol] 88 mg/dL Normal 70-99 [facility] Comment on above: Order Comment: Order Date: 01/28/25 Order Info: [id number] - CMP Order Info: - LIPID Order Info: 3 - TSH Performed By: #### L 500.4100, L501.9520, L500.4050 #### [facility] [address] [place], [address] Potassium [Moles/Vol] 4.0 mmol/L Normal 3.3-5.1 [facility] Comment on above: Order Comment: Order Date: 01/28/25 Order Info: 785-11 - CMP Order Info: - LIPID Order Info: 3 - TSH Performed By: #### L 500.4100, L501.9520, L500.4050 #### [facility] [address] [place], [address] Sodium [Moles/Vol] 139 mmol/L Normal 133-145 [facility] Comment on above: Order Comment: Order Date: 01/28/25 Order Info: 785-11 - CMP Order Info: - LIPID Order Info: 3 - TSH Performed By: #### L 500.4100, L501.9520, L500.4050 #### [facility] [address] [place], [address] T PROT 6.5 g/dL Normal 5.9-8.4 [facility] Comment on above: Order Comment: Order Date: 01/28/25 Order Info: 785-11 - CMP Order Info: - LIPID Order Info: 3 - TSH Performed By: #### L 500.4100, L501.9520, L500.4050 #### [facility] [address] [place], [address] Urea nitrogen [Mass/Vol] 19 mg/dL Normal 4-19 [facility] Comment on above: Order Comment: Order Date: 01/28/25 Order Info: [id number] - CMP Order Info: - LIPID Order Info: 3 - TSH Performed By: #### L 500.4100, L501.9520, L500.4050 #### [facility] [address] [place], [place], [address] GFR/1.73 sq M.predicted kathy g non-blacks MDRD (S/P/Bld) [Vol rate/Area]Ordered By: Fareed Kimbrough on 01-29-2025 Estimated GFR (MDRD) Non-Af Amer 94 >60 [facility] Comment on above: mL/min/1.73m2 CKD-EP I Creatinine Equation (2020) LDL calc ser/plasOrdered By: Fareed Kimbrough on 01-29-2025 LDL Cholesterol, Calculated 94 mg/dL [facility] Comment on above: Pefznwsots=766-450 m g/dL & Higher Tdcw=185 mg/dL or greater Laboratory - Chemistry and C hemistry - challengeOrdered By: Fareed Kimbrough on 01-29-2025 AST [Catalytic activity/Vol] 22 U/L <32 [facility] Lipid Profileon 01-29-2025 CHOL:HDL 2.79 Normal [facility] Comment on above: Order Comment: Order Date: 01/28/25 Order Info: 0786- - CMP Order Info: - LIPID Order Info: [id number] - TSH Performed By: #### L 500.4100, L501.9520, L500.4050 #### [facility] [address] [place], [place], [address] Cholesterol [Mass/Vol] 170 mg/dL Normal <=200 [facility] Comment on above: Order Comment: Order Date: 01/28/25 Order Info: 0786- - CMP Order Info: [id number] - LIPID Order Info: 3 - TSH Result Comment: Chol esterol level, Desirable <200 mg/dL Borderline high cholesterol 200-239 mg/dL High cholesterol >=240 mg/dL Recommendations of the NCEP Adult Treatment Panel for the following risk-cutoff thresholds for the [place] population. Performed By: #### L 500.4100, L501.9520, L500.4050 #### [facility] [address] [place], [address] Cholesterol in HDL [Mass/Vol] 61 mg/dL Normal [facility] Comment on above: Order Comment: Order Date: 01/28/25 Order Info: 785-11 - CMP Order Info: - LIPID Order Info: [id number] - TSH Result Comment: [place] onal Cholesterol Education Program (NCEP) guidelines: <40 mg/dL: Low HDL-cholesterol (major risk factor for CHD) >= 60 mg/dL: High HDL-cholesterol (negative risk factor for CHD) HDL-cholesterol is affected by a number of factors, e.g. smoking, exercise, hormones, sex and age. Performed By: #### L 500.4100, L501.9520, L500.4050 #### [facility] [address] [place], [address] Cholesterol in LDL [Mass/Vol] 94 mg/dL Normal [facility] Comment on above: Order Comment: Order Date: 01/28/25 Order Info: 785-11 - CMP Order Info: - LIPID Order Info: [id number] - TSH Result Comment: Bord viyuyh=549-454 mg/dL Higher Axxk=243 mg/dL or greater Performed By: #### L 500.4100, L501.9520, L500.4050 #### [facility] [address] [place], [address] Cholesterol in VLDL [Mass/Vol] 15 mg/dL Normal 5-40 [facility] Comment on above: Order Comment: Order Date: 01/28/25 Order Info: 07 - CMP Order Info: - LIPID Order Info: [id number] - TSH Performed By: #### L 500.4100, L501.9520, L500.4050 #### [facility] [address] [place], [place], [address] Triglyceride [Mass/Vol] 75 mg/dL Normal [facility] Comment on above: Order Comment: Order Date: 01/28/25 Order Info: [id number] - CMP Order Info: [id number] - LIPID Order Info: [id number] - TSH Result Comment: The drugs N-Acetylcysteine and Metamizole may falsely depress this assay. Normal range: <150 mg/dL Borderline High: 150-199 mg/dL High: 200-499 mg/dL Very High: >500 mg/dL Performed By: #### L 500.4100, L501.9520, L500.4050 #### [facility] [facility] [address] [place], [address] Potassium (Unsp spec) [Mass/ Vol]Ordered By: aFreed Kimbrough on 01-29-2025 Potassium [Moles/Vol] 4.0 mmol/L 3.3-5.1 [facility] Screening total cholesterol/ high density lipoprotein (HDL) cholesterol ratioOrdered By: Fareed Kimbrough on 01-29-2025 Cholesterol.total/Chol esterol in HDL [Mass ratio] 2.79 {ratio} [facility] Serum creatinine measurement (mass/volume)Ordered By: Fareed Kimbrough on 01-29-2025 Creatinine [Mass/Vol] 0.62 mg/dL Low 0.70-1.20 [facility] Serum globulin measurementOr dered By: Fareed Kimbrough on 01-29-2025 Globulin (S) [Mass/Vol] 2.3 g/dL 2.2-4.2 [facility] Serum glucose measurement (m ass/volume)Ordered By: Fareed Kimbrough on 01-29-2025 Glucose [Mass/Vol] 88 mg/dL 70-99 [facility] Serum or plasma alanine morales otransferase (ALT) measurementOrdered By: Fareed Kimbrough on 01-29-2025 ALT [Catalytic activity/Vol] 17 U/L <35 [facility] Serum or plasma albumin jose antonio urement (mass/volume)Ordered By: Fareed Kimbrough on 01-29-2025 Albumin [Mass/Vol] 4.2 g/dL 3.4-4.8 [facility] Serum or plasma albumin/glob ulin mass ratioOrdered By: Fareed Kimbrough on 01-29-2025 Albumin/Globulin [Mass ratio] 1.8 {ratio} 0.9-2.4 [facility] Serum or plasma alkaline tramaine sphatase measurementOrdered By: Fareed Kimbrough on 01-29-2025 ALP [Catalytic activity/Vol] 54 U/L 35-104 [facility] Serum or plasma calcium jose antonio urement (mass/volume)Ordered By: Fareed Kimbrough on 01-29-2025 Calcium [Mass/Vol] 9.4 mg/dL 7.6-11.0 [facility] Serum or plasma cholesterol in HDL measurement (mass/volume)Ordered By: Fareed Kimbrough on 01-29-2025 Cholesterol in HDL [Mass/Vol] 61 mg/dL >40 [facility] Comment on above: National Cholesterol Education Program (NCEP) guidelines:<40 mg/dL: Low HDL-cholesterol (major risk factor for CHD)>= 60 mg/dL: High HDL-cholesterol (negative risk factor for CHD)HDL-cholesterol is affected by a number of factors, e.g. smoking, exercise, hormones, sex and age. Serum or plasma cholesterol measurement (mass/volume)Ordered By: Fareed Kimbrough on 01-29-2025 Cholesterol [Mass/Vol] 170 mg/dL <201 [facility] Comment on above: Cholesterol level, D esirable <200 mg/dLBorderline high cholesterol 200-239 mg/dLHigh cholesterol >=240 mg/dLRecommendations of the NCEP Adult Treatment Panel for the following risk-cutoff thresholds for the [place] Citizen [place] population. Serum or plasma urea nitroge n measurement (mass/volume)Ordered By: Fareed Kimbrough on 01-29-2025 Urea nitrogen [Mass/Vol] 19 mg/dL 4-19 [facility] Sodium levelOrdered By: Stephanie Kimbrough on 01-29-2025 Sodium [Moles/Vol] 139 mmol/L 133-145 [facility] TSH DL <= 0.005 mIU/L QnOrde red By: Fareed Kimbrough on 01-29-2025 Thyroid Stimulating Hormone (TSH) 0.594 uIU/mL 0.300-4.200 [facility] Thyroid Stim Hormone (TSH)on 01-29-2025 TSH 0.594 uIU/mL Normal 0.300-4.200 [facility] Comment on above: Order Comment: Order Date: 01/28/25 Order Info: [id number] - CMP Order Info: [id number] - LIPID Order Info: [id number] - TSH Performed By: #### L 500.4100, L501.9520, L500.4050 #### [facility] [address] [place], [address] Total proteinOrdered By: Angle Kimbrough on 01-29-2025 Protein [Mass/Vol] 6.5 g/dL 5.9-8.4 [facility] Triglycerides measurementOrd ered By: Fareed Kimbrough on 01-29-2025 Triglyceride [Mass/Vol] 75 mg/dL <199 [facility] Comment on above: The drugs N-Acetylcy steine and Metamizole may falsely depress this assay. Normal range: <150 mg/dLBorderline High: 150-199 mg/dLHigh: 200-499 mg/dLVery High: >500 mg/dL 12 Lead E[place] performed [place] [facility] [place] 01-15-2025 12 Lead EKG performed by [facility] [address] [place] [address] 12 Lead EKG performed [place] [facility] 01/15/25 0827 MR#: [id number] Acct: [id number] Name: TIFFANY KAY Rep #: [id number] : 1955 70 From: Arelis Tsai Attending Dr: NAVNEET Poon Status: DEP AMB Ordering Dr: Arelis Thomas Date: 04/06 [place] [facility] Sex: F C Admitted: [facility]12 Lead EKG performed by [facility] ECG Report Interpretation --Sinus Rhythm WITHIN NORMAL LIMITSElectronically signed on 01/16/2025 at 08:17 by Aly [employer] Software Version 6222 01/16/25817 Date Arelis TOTH CC: Dr. Fareed Kimbrough MD Date Dictated: 01/15/25826 Date Transcribed: 01/15/25826 Packaging Engineer: ENEIDA Signed Normal [facility] Cardiology Visit Reporton Cardiology Visit Report [facility] [address] [place] [address] OFFICE VISIT Date of Service: 01/15/25 MR#: [id number] Acct: [id number] Name: TIFFANY KAY Rep #: [id number] : 1955 Provider: NAVNEET Zeng Age/Sex: 70/F [place] [facility] Status: Signed HPI HPI History of Present Illness Details: Tiffany Kay is a 70-year-old female with a history of paroxysmal atrial fibrillation/flutter. Last month she had called her office and had noted that she was in paroxysmal atrial fibrillation. She was started on Eliquis prior to her trip to [place]. She did have an event monitor placed which demonstrated 23% atrial flutter rate. The average heart rate was 64 bpm and sinus rhythm with a minimum of 34 bpm and a maximum of 99 bpm. Patient was not able to participate in the ReACT trial as she did have 3 hours of atrial fibs on her event monitor. She does occasionally feel that she has palpitations. These have been twice since she was last here in the office. They do not last long. Intake Vital Signs 05/13/24 13:00 01/15/25 08:11 Height 5 ft 8 in 5 ft 8 in Weight: 166 lb 180 lb BMI 25.2 27.3 BP 133/80 H 125/76 H Blood Pressure Location Lt brachial Lt brachial Position Sitting Sitting Respiration 18 18 Pulse 60 65 Pulse Source Monitor Monitor Pulse Oximetry (%) 99 98 Intake Visit Reasons: 6 M FU Project Facilitator Required: No Is patient in pain?: No Allergies cantaloupe Allergy (Unknown, Verified 01/15/25 08:25) Unknown watermelon Allergy (Unknown, Verified 01/15/25 08:25) Unknown fish derived Allergy (Verified 01/15/25 08:25) Anaphylaxis Medications ???Medication ???Instructions ???Recorded ???Confirmed ???Type cholecalciferol (vitamin D3) 25 25 mcg PO DAILY 02/16/23 01/15/25 History mcg (1,000 unit) tablet levothyroxine 112 mcg tablet 112 mcg PO DAILY 02/16/23 01/15/25 History (Synthroid) multivitamin 1 tab PO DAILY 02/16/23 01/15/25 H istory psyllium husk 0.4 gram capsule 0.4 g PO DAILY 02/16/23 01/15/25 H istory (Daily Fiber) levothyroxine 125 mcg tablet 125 mcg PO MOWEFR 03/08/23 5 History (Synthroid) apixaban 5 mg tablet (Eliquis) 5 mg PO .COMPLEX #180 tabs 5 01/15/25 Rx lisinopril 10 1 tab PO QDAY 01/15/25 01/15/25 Hi story mg-hydrochlorothiazide 12.5 mg tablet Ejection fraction %: 60 Have you fallen in the past year?: No PFSH Medical History COVID-19 ( 2021) Hypothyroidism Paroxysmal atrial fibrillation Arthritis Knee pain Thyroid disease Surgical History History of History of tubal ligation History of vein stripping History of hernia repair Family History Mother Myocardial infarction Social History Smoking Status: Never smoker alcohol intake: never substance use type: does not use caffeine: Yes Type: coffee Number of servings: 4 ROS Const Const: Negative for fatigue, weakness, headache(s) or frequent falls Eyes Eyes: Negative for blurry vision ENT ENT: Negative for headache(s), dizziness or Nosebleed/epistaxis Cardio Chest Pain: No Palpitations: Yes (occasional palpitations, pressure) Edema: None Muscle aches with walking: None Resp Respiratory: Negative for SOB with activity, SOB at rest or SOB orthopnea SOB lying down GI GI: Negative nausea, vomiting, heartburn, bright, red blood in stools or black,tarry stools : Negative for hematuria Neuro Neuro: Negative for dizziness, frequent falls, headache(s), weakness or blurry vision Endo Endo: Negative for fatigue Cardiology Exam Const Appearance: cooperative, healthy appearing, comfortable, no acute distress and well developed Orientation: alert, awake and oriented x3 Head Head: normal to inspection Ears: hearing grossly normal bilaterally Nose: external nose normal Face and Sinus: face symmetric Mouth: oral mucosae normal, lip normal and moist mucous membranes Eyes General: appearance normal, both eyes and all related structures Eyelids: eyelids normal Conjunctivae: conjunctivae normal Pupils: PERRL EOM: EOM intact bilaterally Neck Neck: normal visual inspection and trachea midline; Negative no JVD Carotids: Negative bruit Chest Chest inspection: normal inspection of the chest Auscultation: Bilateral: Clear to Auscultation Cardio Palpation: normal PMI Rate: regular rate Rhythm: regular rhythm Heart sounds: S1 normal and S2 normal; Negative rub, gallop or murmur GI GI: soft, no hepatosplenomegaly and bowel sounds present N (more content not included)... Normal [facility] Basophil percentageOrdered B y: Rosamaria Fofana on 08-18-2023 Bilirubin [Mass/Vol] 0.90 mg/dL 0.20-1.00 [facility] Comment on above: For patients on eltr ombopag therapy, use of Dim[place] TBIL is not recommended. Chloride [Moles/Vol] 108 mmol/L 98-107 [facility] Cholesterol [Mass/Vol] 196 mg/dL <200 [facility] Comment on above: <200 mg/dL Desirable 200-240 mg/dL Borderline >240 mg/dL High Risk Glucose [Mass/Vol] 77 mg/dL 74-106 [facility] Potassium [Moles/Vol] 4.0 mmol/L 3.5-5.1 [facility] Protein [Mass/Vol] 7.0 g/dL 6.4-8.2 [facility] Sodium [Moles/Vol] 140 mmol/L 136-145 [facility] Triglyceride [Mass/Vol] 66 mg/dL <199 [facility] Comment on above: The drugs N-Acetylcy steine and Metamizole may falsely depress this assay.Serum Triglycerides Reference Interval Normal <150 mg/dL Borderline high 150 - 199 mg/dL High 200 - 499 mg/dL Very High > or = 500 mg/dL Laboratory - Chemistry and C hemistry - challengeOrdered By: Rosamaria Fofana on 08-18-2023 ALP [Catalytic activity/Vol] 70 U/L 45-117 [facility] ALT [Catalytic activity/Vol] 32 U/L 13-56 [facility] CO2 [Moles/Vol] 27.0 mmol/L 21.0-32.0 [facility] Globulin (S) [Mass/Vol] 3.2 g/dL 2.2-4.2 [facility] Urea nitrogen/Creatinine [Mass ratio] 21.6 mg/mg 10-20 [facility] No Panel InformationOrdered By: Rosamaria Fofana on 08-18-2023 Estimated GFR (MDRD) Amer 139 mL/min >60 [facility] Comment on above: GFR Calc Estimated GFR (MDRD) Non-Af Amer 115 mL/min >60 [facility] Comment on above: Non- GFR Calc Serum or plasma albumin jose antonio urement (mass/volume)Ordered By: Rosamaria Fofana on 08-18-2023 Albumin [Mass/Vol] 3.8 g/dL 3.2-5.0 [facility] Serum or plasma albumin/glob ulin mass ratioOrdered By: Rosamaria Fofana on 08-18-2023 Albumin/Globulin [Mass ratio] 1.2 {ratio} 0.9-2.4 [facility] Serum or plasma calcium jose antonio urement (mass/volume)Ordered By: Rosamaria Fofana on 08-18-2023 Calcium [Mass/Vol] 9.1 mg/dL 8.5-10.1 [facility] Serum or plasma cholesterol in HDL measurement (mass/volume)Ordered By: Rosamaria Fofana on 08-18-2023 Cholesterol in HDL [Mass/Vol] 73 mg/dL >40 [facility] Comment on above: The drugs N-Acetylcy steine and Metamizole may falsely depress this assay. Reference Range HDL <40 mg/dL Low HDL Cholesterol HDL >or= 60 mg/dL High HDL Cholesterol Serum or plasma cholesterol in VLDL measurement (mass/volume)Ordered By: Rosamaria Fofana on 08-18-2023 Cholesterol in VLDL [Mass/Vol] 13 mg/dL 5-40 [facility] Serum or plasma creatinine m easurement (mass/volume)Ordered By: Rosamaria Fofana on 08-18-2023 Creatinine [Mass/Vol] 0.56 mg/dL 0.55-1.02 [facility] Comment on above: The validity of the calculated GFR & GFRAA in patients over 70 years has not been determined. Clinical correlation is essential. Serum or plasma low density lipoprotein (LDL) cholesterol measurement (mass/volume)Ordered By: Rosamaria Fofana on 08-18-2023 Cholesterol in LDL [Mass/Vol] 110 mg/dL 0-130 [facility] Serum or plasma urea nitroge n measurement (mass/volume)Ordered By: Rosamaria Fofana on 08-18-2023 Urea nitrogen [Mass/Vol] 12 mg/dL 7-18 [facility] Thin prep Papanicolaou smear with manual screeningOrdered By: Rosamaria Fofana on 08-18-2023 Thin prep Papanicolaou smear with manual screening 24 U/L 15-37 [facility] Thin prep Papanicolaou smear with manual screening 5 5-15 [facility] Laboratory - Chemistry and C hemistry - challengeOrdered By: Rosamaria Fofana on 08-08-2023 Free T4 [Mass/Vol] 1.25 ng/dL 0.76-1.46 [facility] No Panel InformationOrdered By: Rosamaria Fofana on 08-08-2023 Thyroid Stimulating Hormone (TSH) 0.80 uIU/mL 0.358-3.74 [facility] Basophil percentageOrdered B y: Dr. Obregon on 01-02-2023 Bilirubin [Mass/Vol] 0.70 mg/dL 0.20-1.00 [facility] Comment on above: For patients on eltr ombopag therapy, use of [place] TBIL is not recommended. Chloride [Moles/Vol] 107 mmol/L 98-107 [facility] Glucose [Mass/Vol] 97 mg/dL 74-106 [facility] Potassium [Moles/Vol] 4.1 mmol/L 3.5-5.1 [facility] Protein [Mass/Vol] 7.1 g/dL 6.4-8.2 [facility] Sodium [Moles/Vol] 141 mmol/L 136-145 [facility] Laboratory - Chemistry and C hemistry - challengeOrdered By: Dr. Obregon on 01-02-2023 ALP [Catalytic activity/Vol] 57 U/L 45-117 [facility] ALT [Catalytic activity/Vol] 25 U/L 13-56 [facility] CO2 [Moles/Vol] 26.0 mmol/L 21.0-32.0 [facility] Globulin (S) [Mass/Vol] 3.0 g/dL 2.2-4.2 [facility] Urea nitrogen/Creatinine [Mass ratio] 37.8 mg/mg 10-20 [facility] No Panel InformationOrdered By: Dr. Obregon on 01-02-2023 Estimated GFR (MDRD) Amer 125 mL/min >60 [facility] Comment on above: GFR Calc Estimated GFR (MDRD) Non-Af Amer 104 mL/min >60 [facility] Comment on above: Non- GFR Calc Serum or plasma albumin jose antonio urement (mass/volume)Ordered By: Dr. Obregon on 01-02-2023 Albumin [Mass/Vol] 4.1 g/dL 3.2-5.0 [facility] Serum or plasma albumin/glob ulin mass ratioOrdered By: Dr. Obregon on 01-02-2023 Albumin/Globulin [Mass ratio] 1.4 {ratio} 0.9-2.4 [facility] Serum or plasma calcium jose antonio urement (mass/volume)Ordered By: Dr. Obregon on 01-02-2023 Calcium [Mass/Vol] 9.4 mg/dL 8.5-10.1 [facility] Serum or plasma creatinine m easurement (mass/volume)Ordered By: Dr. Obregon on 01-02-2023 Creatinine [Mass/Vol] 0.61 mg/dL 0.55-1.02 [facility] Comment on above: The validity of the calculated GFR & GFRAA in patients over 70 years has not been determined. Clinical correlation is essential. Serum or plasma urea nitroge n measurement (mass/volume)Ordered By: Dr. Obregon on 01-02-2023 Urea nitrogen [Mass/Vol] 23 mg/dL 7-18 [facility] Thin prep Papanicolaou smear with manual screeningOrdered By: Dr. Obregon on 01-02-2023 Thin prep Papanicolaou smear with manual screening 17 U/L 15 [facility] Thin prep Papanicolaou smear with manual screening 8 5-15 [facility] No Panel InformationOrdered By: Rosamaria Fofana on 12-20-2022 Thyroid Stimulating Hormone (TSH) 2.96 uIU/mL 0.358-3.74 [facility] Vital Signs Date Time Vital Sign Value Performing Clinician Faci sandyy 06-23-2025 10:01-0400 Body height 172.72 cm Fareed Kimbrough MD Work Phone: [facility] 06-23-2025 10:01-0400 Body mass index (BMI) [Ratio] 26.7 kg/m2 Fareed Kimbrough MD Work Phone: [facility] 06-23-2025 10:01-0400 Body weight 79.83 kg Fareed Kimbrough MD Work Phone: [facility] 06-23-2025 10:01-0400 Diastolic blood pressure 65 mm[Hg] Fareed Kimbrough MD Work Phone: [facility] 06-23-2025 10:01-0400 Heart rate 68 /min Fareed Kimbrough MD Work Phone: [facility] 06-23-2025 10:01-0400 Respiratory rate 18 /min Fareed Kimbrough MD Work Phone: [facility] 06-23-2025 10:01-0400 Systolic blood pressure 110 mm[Hg] Fareed Kimbrough MD Work Phone: [facility] 01-15-2025 08:11-0500 Body height 172.72 cm Fareed Kimbrough MD Work Phone: [facility] 01-15-2025 08:11-0500 Body mass index (BMI) [Ratio] 27.3 kg/m2 Fareed Kimbrough MD Work Phone: [facility] 01-15-2025 08:11-0500 Body weight 81.64 kg Fareed Kimbrough MD Work Phone: [facility] 01-15-2025 08:11-0500 Diastolic blood pressure 76 mm[Hg] Fareed Kimbrough MD Work Phone: [facility] 01-15-2025 08:11-0500 Heart rate 65 /min Fareed Kimbrough MD Work Phone: [facility] 01-15-2025 08:11-0500 Respiratory rate 18 /min Fareed Kimbrough MD Work Phone: [facility] 01-15-2025 08:11-0500 SaO2% (BldA) [Mass fraction] 98 % Fareed Kimbrough MD Work Phone: [facility] 01-15-2025 08:11-0500 Systolic blood pressure 125 mm[Hg] Fareed Kimbrough MD Work Phone: [facility] Encounters Encounter Date Encounter Type Care Provider Facility Start: 06-23-2025 End: 06-23-2025 Patient encounter procedure Hector PEREZ -[facility] Work Phone: Start: 06-23-2025 End: 06-23-2025 ambulatory Fareed Kimbrough MD Work Phone: -[facility] Start: 02-12-2025 ambulatory Fareed Kimbrough Facility:[facility] Start: 02-12-2025 End: 02-12-2025 ambulatory Fareed Kimbrough MD Work Phone: [facility] Work Phone: Start: 02-12-2025 End: 02-12-[address] Fareed Kimbrough MD -[facility] Work Phone: Start: 02-12-2025 End: 02-12-2025 ambulatory Fareed Kimbrough Facility:[facility] Start: 02-07-2025 Encounter for genera l adult medical examination without abnormal findings Fareed Kimbrough [facility] Start: 01-29-2025 End: 01-29-2025 ambulatory Fareed Kimbrough MD Work Phone: [facility] Work Phone: Start: 01-29-2025 End: 01-29-[address] Fareed Kimbrough MD -[facility] Start: 01-29-2025 End: 01-29-2025 ambulatory Fareed Kimbrough Facility:[facility] Start: 01-15-2025 End: 01-15-2025 Patient encounter procedure Arelis TOTH -[facility] Work Phone: Start: 01-15-2025 End: 01-15-2025 ambulatory Fareed Kimbrough [place] Start: 02-05-2024 End: 02-05-2024 ambulatory [facility] Work Phone: Start: 02-05-2024 End: 02-05-2024 Patient encounter procedure [facility] Work Phone: Start: 08-18-2023 End: 08-18-2023 ambulatory [facility] Work Phone: Start: 08-18-2023 End: 08-18-2023 Patient encounter procedure [facility] Start: 08-08-2023 End: 08-08-2023 Patient encounter procedure [facility] Start: 08-07-2023 End: 08-07-2023 Patient encounter procedure [facility] Start: 01-19-2023 End: 01-19-2023 ambulatory [facility] Work Phone: Start: 01-19-2023 End: 01-19-2023 Patient encounter procedure [facility] Start: 01-02-2023 End: 01-02-2023 ambulatory [facility] Work Phone: Start: 01-02-2023 End: 01-02-2023 Patient encounter procedure [facility] Start: 12-20-2022 End: 12-20-2022 ambulatory [facility] Work Phone: Start: 12-20-2022 End: 12-20-2022 Patient encounter procedure [facility] Procedures Date Procedure Procedure Detail Performing Clinician Start: 02-12-2025 Screening mammography Carri Kimbrough MD Work Phone: Start: 01-15-2025 Evaluation of diagno stic study results Fareed Kimbrough MD Work Phone: Start: 02-05-2024 Screening mammography Start: 01-19-2023 Screening mammography Plan of Treatment Date Care Activity Detail Author Start: 06-23-2025 Evaluation of diagno stic study results [facility] Payers Date Payer Category Payer Private Health Insurance [facility] [id number] 2025 Self-pay [id number] Private Health Insurance [id number] Private Health Insurance [facility] [id number] Unknown [facility] [id number] Unknown [employer] [id number] Unknown [id number] Unknown [id number] Unknown [id number] Unknown [id number] Unknown [id number] Social History Date Type Detail Facility Start: 05-29-2019 End: 09-26-2023 Tobacco smoking status AZIS Unknown if ever smoked [facility] Start: 1955 Sex Assigned At Female [facility] Start: 09-26-2023 Tobacco smoking stat us AZIS Never smoked tobacco (finding) [facility] Start: 02-07-2025 End: 02-18-2025 Sex Female (finding) [facility] Evaluation note 01-15-2025 Note Date & Type Note Facility 01-15-2025 Evaluation note Diagnosis Onset Date Resolution Paroxysmal atrial fibrillation acute January 15, 2025 8:15am [facility] Work Phone: Evaluation note Note Date & Type Note Facility Evaluation note No assessment information availa ble [facility] Work Phone: Evaluation note Note Date & Type Note Facility Evaluation note Diagnosis Onset Date Resolution Paroxysmal atrial fibrillation acute June 23 9:58am Hypothyroidism chronic June 9:58am [facility] Work Phone: Reason for referral (narrative) Note Date & Type Note Facility Reason for referral (narrative) No reason for referral information available [facility] Work Phone: Chief Complaint and Reason for Visit Chief Complaint Admit Date 6 M FU January 15, 2025 8:15 am SCREENING February 12, 2025 7:01 am Reason for Visit Admit Date Paroxysmal atrial fibrillation January 8:15am Chief Complaint SCREENING Chief Complaint SCREENING Chief Complaint Admit Date 6 M FU January 15, 2025 8:15 am Chief Complaint Admit Date Afib Fri, Sat and Sun June 23, 2025 9:58am Reason for Visit Admit Date Paroxysmal atrial fibrillation June 232024 9:58am Hypothyroidism June 23, 2025 9: 58am Summary Purpose Family History No Family History Records Found Advance Directives No Advanced Directives Records Found Additional Source Comments Care Teams (unrecognized sec tion and content) Team Status: Active Member Role Status Dates Dr. Hector Vincent MD Family Provider Active Rosamaria Fofana DO Primary Care Provider Active Team Status: Inactive Member Role Status Dates Rosamaria Fofana , DO Primary Care Provi marimar, Attending Provider, Referring Provider Active Team Status: Inactive Member Role Status Dates Rosamaria Fofana DO Primary Care Provider Active Dr. Roma Obregon MD Attending Provider Active Team Status: Inactive Member Role Status Dates Rosamaria Fofana DO Primary Care Provider, Attending Provider Active Team Status: Active Member Role Status Israel Kimbrough MD Primary Care Provider Active Team Status: Inactive Member Role Status Israel Kimbrough MD Primary Care Provider Active St art: January 15, 2025 End: January 15, 2025 Fareed Kimbrough MD Referring Provider Active Start : January 15, 2025 End: January 15, 2025 Arelis Thomas PA, PA Attending Provider Active Start: January 15, 2025 End: January 15, 2025 Team Status: Inactive Member Role Status Israel Kimbrough MD Primary Care Provider Active St art: January 29, 2025 End: January 29, 2025 Fareed Kimbrough MD Attending Provider Active Start : January 29, 2025 End: January 29, 2025 Fareed Kimbrough MD Referring Provider Active Start : January 29, 2025 End: January 29, 2025 Team Status: Inactive Member Role Status Israel Kimbrough MD Primary Care Provider Active St art: February 12, 2025 End: February 12, 2025 Fareed Kimbrough MD Attending Provider Active Start : February 12, 2025 End: February 12, 2025 Fareed Kimbrough MD Referring Provider Active Start : February 12, 2025 End: February 12, 2025 Team Status: Active Member Role/Relationship Status Israel Kimbrough MD Primary Care Provider Active Team Status: Inactive Member Role/Relationship Status Israel Kimbrough MD Primary Care Provider Active St art: June 23, 2025 End: June 23, 2025 Fareed Kimbrough MD Referring Provider Active Start : June 23, 2025 End: June 23, 2025 Hector Arriaga APPAREL MERCHANDISER, APPAREL MERCHANDISER-C Attending Provider Active S tart: June 23, 2025 End: June 23, 2025 Goals (unrecognized section and content) Goals may be documented in a n alternate sectionGoals may be documented in an alternate sectionGoals may be documented in an alternate sectionGoals may be documented in an alternate sectionGoals may be documented in an alternate sectionGoals may be documented in an alternate sectionGoals may be documented in an alternate sectionGoals may be documented in an alternate section INFORMATION SOURCE (unrecogn ized section and content) DATE CREATED AUTHOR 06/24/2025 [facility] FOR RECORDS PERTAINING TO PATIENTS WHO ARE OR HAVE BEEN ENROLLED IN A CHEMICAL DEPENDENCY/SUBSTANCEABUSE PROGRAM, SOME INFORMATION MAY BE OMITTED. This clinical summary was aggregated from multiple sources. Caution should be exercised in using it in the provision of clinical care. This summary normalizes information from multiple sources, and as a consequence, information in this document may materially change the coding, format and clinical context of patient data. In addition, data may be omitted in some cases. CLINICAL DECISIONS SHOULD BE BASED ON THE PRIMARY CLINICAL RECORDS. [employer] provides no warranty or guarantee of the accuracy or completeness of information in this document.
== END | disposition home or self-care (01) ==
LOC: MFPLAB 08:30
PROVIDERS: PCP Family Medicine; Visit Provider Family Medicine
DX: E03.9 Hypothyroidism, unspecified (principal)
CPT/HCPCS: 36415; 84443

== ENCOUNTER → 2025-09-10 | Outpatient (CLI) | payer MEDICARE, SELFPAY | END | disposition home or self-care (01) | LOC: MFPLAB 09:15 | PROVIDERS: PCP Family Medicine; Visit Provider Family Medicine | DX: E03.9 Hypothyroidism, unspecified (principal) | CPT/HCPCS: 36415; 84443 ==